=== PATIENT | female | born 1935 | race Caucasian/White ===

== ENCOUNTER 2020-05-24 17:52 | Observation (INO) | payer MEDICARE, OTHER ==
--- NOTE | 2020-05-24 18:52 | EDM.PDOC ---
ED HPI GENERAL MEDICAL PROBLEM - General Chief Complaint: Neuro Symptoms/Deficits Stated Complaint: STROKE SYMPTOMS Time Seen by Provider: 05/24/20 18:22 Source of Information: Reports: Patient History Limitations: Reports: Altered Mental Status (Patient slightly confused - not a great historian) - History of Present Illness INITIAL COMMENTS - FREE TEXT/NARRATIVE: Mrs. Dong is a very pleasant 84-year-old woman who now presents to the ED after experiencing difficulty speaking around 17:45 this evening, lasting about 30 minutes. She states that she was able to speak words that were likely [place], but they were disordered and did not make any sense. She was unable to communicate with her daughter. Additionally, the patient states that she had difficulty understanding what her daughter was telling her. She states that it felt like she was having difficulty thinking correctly, which has persisted, even though her language has returned. At no time did she have a headache, tingling, numbness, or weakness. No prior similar symptoms. The patient states that she did not take any [id number] or home remedies after the onset of her symptoms, prior to coming to the ED. Here in the ED, the patient's initial BP is found to be modestly elevated at 173/86, otherwise, she is hemodynamically stable, afebrile, saturating 95% on room air. Prior to this evening, the patient denies having a recent fever, chills, sore throat, ear pain, nasal or sinus congestion, cough, dyspnea, chest pain, palpitations, nausea, vomiting, constipation, diarrhea, abdominal pain, urinary symptoms, recent weight gain or weight loss, recent bloody bowel movements or black bowel movements, recent joint aches, headaches, or rashes. The patient's PCP is Dr. Mini Mendoza. Her Oncologist is Dr. Edward Garcia. - Related Data Allergies Allergy/AdvReac Type Severity Reaction Status Date / Time No Known Allergies Allergy Verified 05/24/20 23:37 Home Meds: Home Meds Cholecalciferol (Vitamin D3) [Vitamin D3] 1,000 unit PO DAILY 06/21/14 [History] Rosuvastatin [Crestor] 10 mg PO DAILY 06/21/14 [History] Bisoprolol/Hydrochlorothiazide [Bisoprolol-Hctz 10-6.25 mg Tab] 1 tab PO DAILY 05/24/20 [History] Celecoxib 200 mg PO DAILY 05/24/20 [History] Gentamicin [Gentak 0.3% Ophth Oint] 1 drop OP TID 05/24/20 [History] Ibrutinib [Imbruvica] 420 mg PO DAILY 05/24/20 [History] Magnesium 250 mg PO DAILY 05/24/20 [History] Omeprazole 20 mg PO DAILY 05/24/20 [History] Ondansetron [Zofran] 8 mg PO TID PRN 05/24/20 [History] Sennosides 8.6 mg PO DAILY 05/24/20 [History] amLODIPine [Norvasc] 5 mg PO DAILY 05/24/20 [History] guaiFENesin [Mucinex] 600 mg PO BID PRN 05/24/20 [History] Past Medical History HEENT History: Reports: Hard of Hearing (bilateral hearing aids) Cardiovascular History: Reports: High Cholesterol, Hypertension Musculoskeletal History: Reports: Fracture (left ankle) Oncologic (Cancer) History: 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 (right, s/p mastectomy), 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) - Past Surgical History HEENT Surgical History: Reports: Cataract Surgery (bilateral) GI Surgical History: Reports: Appendectomy Musculoskeletal Surgical History: Reports: ORIF (left ankle) Oncologic Surgical History: Reports: Mastectomy (right) Social & Family History - Tobacco Use Tobacco Use Status *Q: Never Tobacco User - Alcohol Use Alcohol Use History: Yes Alcohol Use Frequency: Rarely - Recreational Drug Use Recreational Drug Use: No - Living Situation & Occupation Living situation: Reports: , with Family (Daughter) Occupation: Retired ED ROS GENERAL - Review of Systems Review Of Systems: Comprehensive ROS is negative, except as noted in HPI. ED EXAM, NEURO - Physical Exam Exam: See Below Exam Limited By: No Limitations General Appearance: Alert, WD/WN, No Apparent Distress Eye Exam: Bilateral Eye: EOMI, Normal Inspection (s/p cataract surgery) Ears: Normal External Exam, Normal Canal, Normal TMs, Hearing Loss, Other (Bilateral hearing aids removed for exam) Nose: Normal Inspection, Normal Mucosa, No Blood Throat/Mouth: Normal Inspection, Normal Lips, Normal Teeth, Normal Gums, Normal Oropharynx, Normal Voice, No Airway Compromise Head Exam: Atraumatic, Normocephalic Neck: Normal Inspection, Supple, Non-Tender, Full Range of Motion. No: Lymphadenopathy (L), Lymphadenopathy (R) Respiratory/Chest: No Respiratory Distress, Lungs Clear, Normal Breath Sounds, No Accessory Muscle Use Cardiovascular: Normal Peripheral Pulses, Regular Rate, Rhythm, No Gallop, No JVD, No Murmur, No Rub GI/Abdominal: Normal Bowel Sounds, Soft, Non-Tender, No Organomegaly, No Distention, No Abnormal Bruit, No Mass Neurological: Alert, Normal Dorsiflexion, CN II-XII Intact, Normal Plantar Flexion, No Motor/Sensory Deficits, Oriented x 3, Other (Somewhat confused about past medical and surgical history) Back Exam: Normal Inspection, Full Range of Motion, NT Extremities: Normal Inspection, Normal Range of Motion, Normal Capillary Refill Psychiatric: Normal Affect Skin Exam: Warm, Dry, Intact, Normal Color, No Rash #1 Interpretation EKG Date: 05/24/20 Time: 18:20 Rhythm: NSR Rate (Beats/Min): 69 [place]: 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) P-Wave: Present (1st degree AVB) QRS: Other (Late transition) ST-T: Normal QT: Normal Comparison: No Change (06/21/14) Course - Vital Signs Last Recorded V/S: Last Vital Signs Temp 36.7 C 05/24/20 23:03 Pulse 58 L 05/24/20 23:03 Resp 16 05/24/20 23:03 BP 122/84 05/24/20 23:00 Pulse Ox 94 L 05/24/20 23:03 - Orders/Labs/Meds Orders: Active Orders 24 hr Category Date Time Status EKG 12 Lead [EKG Documentation Completion] [RC] ROUTINE Care 05/24/20 18:18 Active Chest 2V [CR] Stat Exams 05/24/20 18:43 Taken Head wo Cont [CT] Stat Exams 05/24/20 18:42 Taken CULTURE URINE [RM] Stat Lab 05/24/20 19:45 Received Medication Orders Nitrofurantoin Macrocrystals (Macrobid) 100 mg PO BID [facility] Labs: Laboratory Tests 05/24/20 05/24/20 05/24/20 Range/Units 18:10 18:10 18:10 WBC 6.03 (3.98-10.04) K/mm3 RBC 4.58 (3.98-5.22) M/mm3 Hgb 13.8 D (11.2-15.7) gm/dl Hct 41.8 (34.1-44.9) % MCV 91.3 (79.4-94.8) fl MCH 30.1 (25.6-32.2) pg MCHC 33.0 (32.2-35.5) g/dl RDW Std Deviation 47.2 H (36.4-46.3) fL Plt Count 253 (182-369) K/mm3 MPV 9.8 (9.4-12.3) fl Neutrophils % (Manual) 46 (40-60) % Band Neutrophils % 2 (0-10) % Lymphocytes % (Manual) 44 H (20-40) % Atypical Lymphs % 0 % Monocytes % (Manual) 5 (2-10) % Eosinophils % (Manual) 2 (0.7-5.8) % Basophils % (Manual) 1 (0.1-1.2) Platelet Estimate Adequate RBC Morph Comment Normal D-Dimer, Quantitative 0.31 (0.19-0.50) mg/L Sodium 135 L (136-145) mEq/L Potassium 3.7 (3.5-5.1) mEq/L Chloride 98 (98-107) mEq/L Carbon Dioxide 30 (21-32) mEq/L Anion Gap 10.7 (5-15) BUN 16 (7-18) mg/dL Creatinine 1.0 (0.55-1.02) mg/dL Est Cr Clr Drug Dosing 33.41 mL/min Estimated GFR (MDRD) 53 (>60) mL/min BUN/Creatinine Ratio 16.0 (14-18) Glucose 115 (83-115) mg/dL POC Glucose (83-110) mg/dL Calcium 9.6 (8.5-10.1) mg/dL Magnesium 1.7 L (1.8-2.4) mg/dl Total Bilirubin 0.5 (0.2-1.0) mg/dL AST 18 (15-37) U/L ALT 21 (14-59) U/L Alkaline Phosphatase 79 (46-116) U/L Troponin I 0.028 (0.00-0.056) ng/mL Total Protein 6.6 (6.4-8.2) g/dl Albumin 3.6 (3.4-5.0) g/dl Globulin 3.0 gm/dL Albumin/Globulin Ratio 1.2 (1-2) Urine Color (Yellow) Urine Appearance (Clear) Urine pH (5.0-8.0) Ur Specific [place] (1.005-1.030) Urine Protein (Negative) Urine Glucose (UA) (Negative) Urine Ketones (Negative) Urine Occult Blood (Negative) Urine Nitrite (Negative) Urine Bilirubin (Negative) Urine Urobilinogen (0.2-1.0) Ur Leukocyte Esterase (Negative) Urine RBC (0-5) /hpf Urine WBC (0-5) /hpf Urine WBC Clumps (NOT SEEN) /hpf Ur Squamous Epith Cells (0-5) /hpf Urine Bacteria (FEW) /hpf Urine Mucus (FEW) /hpf SARS-CoV-2 RNA (JOSE) (NEGATIVE) 05/24/20 05/24/20 05/24/20 Range/Units 18:16 19:45 20:33 WBC (3.98-10.04) K/mm3 RBC (3.98-5.22) M/mm3 Hgb (11.2-15.7) gm/dl Hct (34.1-44.9) % MCV (79.4-94.8) fl MCH (25.6-32.2) pg MCHC (32.2-35.5) g/dl RDW Std Deviation (36.4-46.3) fL Plt Count (182-369) K/mm3 MPV (9.4-12.3) fl Neutrophils % (Manual) (40-60) % Band Neutrophils % (0-10) % Lymphocytes % (Manual) (20-40) % Atypical Lymphs % % Monocytes % (Manual) (2-10) % Eosinophils % (Manual) (0.7-5.8) % Basophils % (Manual) (0.1-1.2) Platelet Estimate RBC Morph Comment D-Dimer, Quantitative (0.19-0.50) mg/L Sodium (136-145) mEq/L Potassium (3.5-5.1) mEq/L Chloride (98-107) mEq/L Carbon Dioxide (21-32) mEq/L Anion Gap (5-15) BUN (7-18) mg/dL Creatinine (0.55-1.02) mg/dL Est Cr Clr Drug Dosing mL/min Estimated GFR (MDRD) (>60) mL/min BUN/Creatinine Ratio (14-18) Glucose (83-115) mg/dL POC Glucose 122 H (83-110) mg/dL Calcium (8.5-10.1) mg/dL Magnesium (1.8-2.4) mg/dl Total Bilirubin (0.2-1.0) mg/dL AST (15-37) U/L ALT (14-59) U/L Alkaline Phosphatase (46-116) U/L Troponin I (0.00-0.056) ng/mL Total Protein (6.4-8.2) g/dl Albumin (3.4-5.0) g/dl Globulin gm/dL Albumin/Globulin Ratio (1-2) Urine Color Yellow (Yellow) Urine Appearance Clear (Clear) Urine pH 7.0 (5.0-8.0) Ur Specific [place] 1.020 (1.005-1.030) Urine Protein Negative (Negative) Urine Glucose (UA) Negative (Negative) Urine Ketones Negative (Negative) Urine Occult Blood 2+ H (Negative) Urine Nitrite Negative (Negative) Urine Bilirubin Negative (Negative) Urine Urobilinogen 0.2 (0.2-1.0) Ur Leukocyte Esterase 2+ H (Negative) Urine RBC 5-10 H (0-5) /hpf Urine WBC 50-75 H (0-5) /hpf Urine WBC Clumps Occasional (NOT SEEN) /hpf Ur Squamous Epith Cells 0-5 (0-5) /hpf Urine Bacteria Few (FEW) /hpf Urine Mucus Not seen (FEW) /hpf SARS-CoV-2 RNA (JOSE) Negative (NEGATIVE) Meds: Medications Generic Name Dose Route Start Last Admin Trade Name Freq PRN Reason Stop Dose Admin Nitrofurantoin Macrocrystals 100 mg 05/25/20 09:00 Macrobid PO BID GLENN Discontinued Medications Generic Name Dose Route Start Last Admin Trade Name Freq PRN Reason Stop Dose Admin Nitrofurantoin Macrocrystals 100 mg 05/24/20 20:14 05/24/20 20:34 Macrobid PO 05/24/20 20:15 100 mg ONETIME STA Administration - Re-Assessments/Exams Free Text/Narrative Re-Assessment/Exam: 05/24/20 18:44 As above, the patient developed both receptive and expressive aphasia around 17:45 this evening, lasting about 30 minutes, and resolving completely before arrival to the ED. She states, however, that she also felt like her brain was not working quite well, and that symptom persists. She has some difficulty in recalling events, such as what sort of treatment she received for her breast cancer and leukemia, or whether or not she has had a variety of surgeries - forgetting that she has had bilateral cataract surgery, despite directly being asked that. Confusion alone, without focal neurologic deficits, is not a sign of a stroke, and the patient has no focal neurologic deficits at this time. I suspect that she suffered a TIA, but other etiologies are possible. She may be developing dementia or have some other neurologic condition. I have ordered a work-up that includes blood work, a urinalysis, a chest x-ray, and a CT of the head without contrast. Because the list of symptoms due to COVID-19 is ever expanding, now causing virtually any symptom, it is also possible that she has COVID-19, therefore I have ordered a swab for the SARS-CoV-2 virus. 05/24/20 19:33 2-view chest radiograph is read by [facility] as "No acute findings." 05/24/20 19:41 CT of the head no contrast is read by [facility] as: 1. Patchy deep white matter low-attenuation compatible with this age group suggesting chronic subcortical ischemia. 2. No acute abnormality. 05/24/20 20:15 The patient's CBC is unremarkable. Her CMP is remarkable for a sodium at the lower limits of normal of 135, with the remainder of her CMP being unremarkable. Her magnesium level is slightly depressed at 1.7. Her troponin is within normal limits at 0.028. Her D-dimer is within normal limits at 0.31. Her urinalysis is remarkable for 2+ occult blood with 5-10 RBCs, 2+ leukocyte esterase with 50-75 WBCs, nitrate negative with few bacteria, and 0-5 squamous epithelial cells. Based on the above, I have ordered a urine culture, and will start the patient on oral nitrofurantoin. 05/24/20 20:28 Test results discussed with the patient. As above, I suspect that she suffered a TIA, and she also appears to have a UTI. I would like to place her into observation so that she can get an MRI of the head within 24 hours, along with a carotid Doppler and an echocardiogram, however, this facility is currently on diversion. The patient would prefer to stay here in [place], however, she is willing to go to [place] if a bed is available. 05/24/20 20:38 Case discussed with Nancy at [facility] at 20:29. Case then discussed with Dr. Franklin, Hospitalist at [facility], at 20:35. Pending a negative swab for the SARS-CoV-2 virus, she accepted the patient for transfer to their facility. If the patient is positive for the SARS-CoV-2 virus, they will not be able to accept the patient at this time. 05/24/20 22:31 The patient's a swab for the SARS-CoV-[address] Clayton came by the ED and can place the patient into observation here. He will arrange for the MRI, carotid Doppler, and echocardiogram. I will write bridge orders for diet and activity. Departure - Departure Time of Disposition: 22:32 Disposition: Refer to Observation Condition: Good Clinical Impression: TIA (transient ischemic attack), UTI (urinary tract infection) - Discharge Information *PRESCRIPTION DRUG MONITORING PROGRAM REVIEWED*: Not Applicable *COPY OF PRESCRIPTION DRUG MONITORING REPORT IN PATIENT LONI: Not Applicable Sepsis Event Note (ED) - Evaluation Sepsis Screening Result: No Definite Risk - Focused Exam Vital Signs: Vital Signs Temp Pulse Resp BP Pulse Ox 05/24/20 18:08 36.1 C 71 16 173/86 H 95 - My Orders Last 24 Hours: My Active Orders 05/24/20 18:18 EKG 12 Lead [EKG Documentation Completion] [RC] ROUTINE 05/24/20 18:42 Head wo Cont [CT] Stat 05/24/20 18:43 Chest 2V [CR] Stat 05/24/20 19:45 CULTURE URINE [RM] Stat - Assessment/Plan Last 24 Hours: My Active Orders 05/24/20 18:18 EKG 12 Lead [EKG Documentation Completion] [RC] ROUTINE 05/24/20 18:42 Head wo Cont [CT] Stat 05/24/20 18:43 Chest 2V [CR] Stat 05/24/20 19:45 CULTURE URINE [RM] Stat
[2020-05-24] MEDS ORDERED: Nitrofurantoin Monohydrate/Macrocrystalline 100 MG Cap PO STA (20:14)
[2020-05-25] MEDS ORDERED: Ondansetron 4 MG Tab.DIS PO PRN (08:01)
[2020-05-25] MEDS ORDERED: CELECOXIB 200 MG PO SCH (09:00)
[2020-05-25] MEDS ORDERED: Enoxaparin 30 MG/0.3 ML Syringe SUBCUT ONE (10:15)
[2020-05-25] MEDS: Cholecalciferol (Vitamin D3) 25 MCG Tab PO SCH (10:36)
[2020-05-25] MEDS: Aspirin 325 MG Tab.EC PO SCH (10:37)
[2020-05-25] MEDS: Sennosides 8.6 MG Tab PO SCH (10:39)
[2020-05-25] MEDS: Nitrofurantoin Monohydrate/Macrocrystalline 100 MG Cap PO SCH ×2 (10:39→20:20)
[2020-05-25] MEDS ORDERED: Magnesium Sulfate/Water 2 GM/50 ML BAG IV ONE (12:00)
--- NOTE | 2020-05-25 12:47 | PCM.HP.2 ---
H&P History of Present Illness - General Date of Service: 05/25/20 Admit Problem/Dx: Admission Diagnosis/Problem Admission Diagnosis/Problem TIA, Transient ischemic attack Source of Information: Provider History Limitations: Reports: Other (Patient is oriented to person and place only.) - History of Present Illness Initial Comments - Free Text/Narative: Mrs. Dong is a very pleasant 84-year-old woman who now presents to the ED after experiencing difficulty speaking around 17:45 this evening, lasting about 30 minutes. She states that she was able to speak words that were likely German, but they were disordered and did not make any sense. She was unable to communicate with her daughter. Additionally, the patient states that she had difficulty understanding what her daughter was telling her. She states that it felt like she was having difficulty thinking correctly, which has persisted, even though her language has returned. At no time did she have a headache, tingling, numbness, or weakness. No prior similar symptoms. The patient states that she did not take any [id number] or home remedies after the onset of her symptoms, prior to coming to the ED. Here in the ED, the patient's initial BP is found to be modestly elevated at 173/86, otherwise, she is hemodynamically stable, afebrile, saturating 95% on room air. Prior to this evening, the patient denies having a recent fever, chills, sore throat, ear pain, nasal or sinus congestion, cough, dyspnea, chest pain, palpitations, nausea, vomiting, constipation, diarrhea, abdominal pain, urinary symptoms, recent weight gain or weight loss, recent bloody bowel movements or black bowel movements, recent joint aches, headaches, or rashes. The patient's PCP is Dr. Mini Mendoza. Her Oncologist is Dr. Edward Garcia. - Related Data Allergies/Adverse Reactions: Allergies Allergy/AdvReac Type Severity Reaction Status Date / Time No Known Allergies Allergy Verified 05/24/20 23:37 Home Medications: Home Meds Cholecalciferol (Vitamin D3) [Vitamin D3] 1,000 unit PO DAILY 06/21/14 [History] Rosuvastatin [Crestor] 10 mg PO DAILY 06/21/14 [History] Bisoprolol/Hydrochlorothiazide [Bisoprolol-Hctz 10-6.25 mg Tab] 1 tab PO DAILY 05/24/20 [History] Celecoxib 200 mg PO DAILY 05/24/20 [History] Gentamicin [Gentak 0.3% Ophth Oint] 1 drop OP TID 05/24/20 [History] Ibrutinib [Imbruvica] 420 mg PO DAILY 05/24/20 [History] Magnesium 250 mg PO DAILY 05/24/20 [History] Omeprazole 20 mg PO DAILY 05/24/20 [History] Ondansetron [Zofran] 8 mg PO TID PRN 05/24/20 [History] Sennosides 8.6 mg PO DAILY 05/24/20 [History] amLODIPine [Norvasc] 5 mg PO DAILY 05/24/20 [History] guaiFENesin [Mucinex] 600 mg PO BID PRN 05/24/20 [History] Aspirin 81 mg PO DAILY 05/25/20 [History] Calcium Carbonate [Calcium] 1,500 mg PO DAILY 05/25/20 [History] Furosemide [Lasix] 20 mg PO DAILY PRN 05/25/20 [History] Multivitamin 1 tab PO DAILY 05/25/20 [History] Past Medical History HEENT History: Reports: Hard of Hearing (bilateral hearing aids) Other HEENT History: has hearing aides for bilateral ears and glasses Cardiovascular History: Reports: High Cholesterol, Hypertension 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: Musculoskeletal History: Reports: Fracture (left ankle) Endocrine/Metabolic History: Reports: Obesity/BMI 30+ Oncologic (Cancer) History: 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 (right, s/p mastectomy), 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) - Infectious Disease History Infectious Disease History: Reports: Chicken Pox, Influenza, Measles, Mumps - Past Surgical History HEENT Surgical History: Reports: Cataract Surgery (bilateral) GI Surgical History: Reports: Appendectomy Musculoskeletal Surgical History: Reports: ORIF (left ankle) Oncologic Surgical History: Reports: Mastectomy (right) Social & Family History - Family History Family Medical History: No Pertinent Family History - Tobacco Use Tobacco Use Status *Q: Never Tobacco User Second Hand Smoke Exposure: No - Caffeine Use Caffeine Use: Reports: Coffee, Tea - Recreational Drug Use Recreational Drug Use: No - Living Situation & Occupation Living situation: Reports: , with Family (Daughter) Occupation: Retired H&P Review of Systems - Review of Systems: Review Of Systems: See Below General: Reports: No Symptoms HEENT: Reports: No Symptoms. Denies: Headaches, Vertigo, Visual Changes Pulmonary: Reports: No Symptoms Cardiovascular: Reports: No Symptoms Gastrointestinal: Reports: No Symptoms Genitourinary: Reports: No Symptoms Musculoskeletal: Reports: No Symptoms Skin: Reports: No Symptoms Psychiatric: Reports: No Symptoms Neurological: Reports: Confusion (Patient is oriented to person and place only.). Denies: Headache, Numbness, Weakness Exam - Exam Exam: See Below - Vital Signs Vital Signs: Last Vital Signs Temp 98.8 F 05/25/20 12:13 Pulse 60 05/25/20 12:13 Resp 14 05/25/20 12:13 BP 159/99 H 05/25/20 12:13 Pulse Ox 89 L 05/25/20 12:13 Weight: 168 lb 8 oz - Exam Quality Assessment: DVT Prophylaxis (Lovenox). No: Supplemental Oxygen General: Alert, Cooperative. No: Oriented (To person and place only) HEENT: Conjunctiva Clear, EACs Clear, EOMI, Hearing Intact, Mucosa Moist & [place], Pupils Equal, Pupils Reactive Neck: Supple, Trachea Midline. No: Lymphadenopathy Lungs: Clear to Auscultation, Normal Respiratory Effort Cardiovascular: Regular Rate, Regular Rhythm, Normal S1, Normal S2 GI/Abdominal Exam: Normal Bowel Sounds, Soft, Non-Tender, No Distention (Female) Exam: Deferred Rectal (Female) Exam: Deferred Back Exam: Normal Inspection, Full Range of Motion Extremities: Normal Inspection, Normal Range of Motion, Non-Tender, No Pedal Edema, Normal Capillary Refill Peripheral Pulses: 2+: Radial (L), Radial (R), Dorsalis Pedis (L), Dorsalis Pedis (R) Skin: Warm, Dry, Intact Neurological: Cranial Nerves Intact, Strength Equal Bilateral, Normal Speech, Normal Tone, Sensation Intact Neuro Extensive - Mental Status: Alert, Normal Mood/Affect, Normal Cognition, Disorientation to Time. No: Oriented x3 (Oriented to person and place only) - Patient Data Lab Results Last 24 hrs: Laboratory Results - last 24 hr 05/24/20 05/24/20 05/24/20 Range/Units 18:10 18:10 18:10 WBC 6.03 (3.98-10.04) K/mm3 RBC 4.58 (3.98-5.22) M/mm3 Hgb 13.8 D (11.2-15.7) gm/dl Hct 41.8 (34.1-44.9) % MCV 91.3 (79.4-94.8) fl MCH 30.1 (25.6-32.2) pg MCHC 33.0 (32.2-35.5) g/dl RDW Std Deviation 47.2 H (36.4-46.3) fL Plt Count 253 (182-369) K/mm3 MPV 9.8 (9.4-12.3) fl Neut % (Auto) (34.0-71.1) % Lymph % (Auto) (19.3-51.7) % [place] % (Auto) (4.7-12.5) % Eos % (Auto) (0.7-5.8) Baso % (Auto) (0.1-1.2) % Neut # (Auto) (1.56-6.13) K/mm3 Lymph # (Auto) (1.18-3.74) K/mm3 [place] # (Auto) (0.24-0.36) K/mm3 Eos # (Auto) (0.04-0.36) K/mm3 Baso # (Auto) (0.01-0.08) K/mm3 Neutrophils % (Manual) 46 (40-60) % Band Neutrophils % 2 (0-10) % Lymphocytes % (Manual) 44 H (20-40) % Atypical Lymphs % 0 % Monocytes % (Manual) 5 (2-10) % Eosinophils % (Manual) 2 (0.7-5.8) % Basophils % (Manual) 1 (0.1-1.2) Manual Slide Review Platelet Estimate Adequate RBC Morph Comment Normal D-Dimer, Quantitative 0.31 (0.19-0.50) mg/L Sodium 135 L (136-145) mEq/L Potassium 3.7 (3.5-5.1) mEq/L Chloride 98 (98-107) mEq/L Carbon Dioxide 30 (21-32) mEq/L Anion Gap 10.7 (5-15) BUN 16 (7-18) mg/dL Creatinine 1.0 (0.55-1.02) mg/dL Est Cr Clr Drug Dosing 33.41 mL/min Estimated GFR (MDRD) 53 (>60) mL/min BUN/Creatinine Ratio 16.0 (14-18) Glucose 115 (83-115) mg/dL POC Glucose (83-110) mg/dL Calcium 9.6 (8.5-10.1) mg/dL Magnesium 1.7 L (1.8-2.4) mg/dl Total Bilirubin 0.5 (0.2-1.0) mg/dL AST 18 (15-37) U/L ALT 21 (14-59) U/L Alkaline Phosphatase 79 (46-116) U/L Troponin I 0.028 (0.00-0.056) ng/mL Total Protein 6.6 (6.4-8.2) g/dl Albumin 3.6 (3.4-5.0) g/dl Globulin 3.0 gm/dL Albumin/Globulin Ratio 1.2 (1-2) Urine Color (Yellow) Urine Appearance (Clear) Urine pH (5.0-8.0) Ur Specific [place] (1.005-1.030) Urine Protein (Negative) Urine Glucose (UA) (Negative) Urine Ketones (Negative) Urine Occult Blood (Negative) Urine Nitrite (Negative) Urine Bilirubin (Negative) Urine Urobilinogen (0.2-1.0) Ur Leukocyte Esterase (Negative) Urine RBC (0-5) /hpf Urine WBC (0-5) /hpf Urine WBC Clumps (NOT SEEN) /hpf Ur Squamous Epith Cells (0-5) /hpf Urine Bacteria (FEW) /hpf Urine Mucus (FEW) /hpf SARS-CoV-2 RNA (JOSE) (NEGATIVE) 05/24/20 05/24/20 05/24/20 Range/Units 18:16 19:45 20:33 WBC (3.98-10.04) K/mm3 RBC (3.98-5.22) M/mm3 Hgb (11.2-15.7) gm/dl Hct (34.1-44.9) % MCV (79.4-94.8) fl MCH (25.6-32.2) pg MCHC (32.2-35.5) g/dl RDW Std Deviation (36.4-46.3) fL Plt Count (182-369) K/mm3 MPV (9.4-12.3) fl Neut % (Auto) (34.0-71.1) % Lymph % (Auto) (19.3-51.7) % [place] % (Auto) (4.7-12.5) % Eos % (Auto) (0.7-5.8) Baso % (Auto) (0.1-1.2) % Neut # (Auto) (1.56-6.13) K/mm3 Lymph # (Auto) (1.18-3.74) K/mm3 [place] # (Auto) (0.24-0.36) K/mm3 Eos # (Auto) (0.04-0.36) K/mm3 Baso # (Auto) (0.01-0.08) K/mm3 Neutrophils % (Manual) (40-60) % Band Neutrophils % (0-10) % Lymphocytes % (Manual) (20-40) % Atypical Lymphs % % Monocytes % (Manual) (2-10) % Eosinophils % (Manual) (0.7-5.8) % Basophils % (Manual) (0.1-1.2) Manual Slide Review Platelet Estimate RBC Morph Comment D-Dimer, Quantitative (0.19-0.50) mg/L Sodium (136-145) mEq/L Potassium (3.5-5.1) mEq/L Chloride (98-107) mEq/L Carbon Dioxide (21-32) mEq/L Anion Gap (5-15) BUN (7-18) mg/dL Creatinine (0.55-1.02) mg/dL Est Cr Clr Drug Dosing mL/min Estimated GFR (MDRD) (>60) mL/min BUN/Creatinine Ratio (14-18) Glucose (83-115) mg/dL POC Glucose 122 H (83-110) mg/dL Calcium (8.5-10.1) mg/dL Magnesium (1.8-2.4) mg/dl Total Bilirubin (0.2-1.0) mg/dL AST (15-37) U/L ALT (14-59) U/L Alkaline Phosphatase (46-116) U/L Troponin I (0.00-0.056) ng/mL Total Protein (6.4-8.2) g/dl Albumin (3.4-5.0) g/dl Globulin gm/dL Albumin/Globulin Ratio (1-2) Urine Color Yellow (Yellow) Urine Appearance Clear (Clear) Urine pH 7.0 (5.0-8.0) Ur Specific [place] 1.020 (1.005-1.030) Urine Protein Negative (Negative) Urine Glucose (UA) Negative (Negative) Urine Ketones Negative (Negative) Urine Occult Blood 2+ H (Negative) Urine Nitrite Negative (Negative) Urine Bilirubin Negative (Negative) Urine Urobilinogen 0.2 (0.2-1.0) Ur Leukocyte Esterase 2+ H (Negative) Urine RBC 5-10 H (0-5) /hpf Urine WBC 50-75 H (0-5) /hpf Urine WBC Clumps Occasional (NOT SEEN) /hpf Ur Squamous Epith Cells 0-5 (0-5) /hpf Urine Bacteria Few (FEW) /hpf Urine Mucus Not seen (FEW) /hpf SARS-CoV-2 RNA (JOSE) Negative (NEGATIVE) 05/25/20 05/25/20 Range/Units 08:25 08:25 WBC 5.13 (3.98-10.04) K/mm3 RBC 4.80 (3.98-5.22) M/mm3 Hgb 14.2 (11.2-15.7) gm/dl Hct 43.7 (34.1-44.9) % MCV 91.0 (79.4-94.8) fl MCH 29.6 (25.6-32.2) pg MCHC 32.5 (32.2-35.5) g/dl RDW Std Deviation 47.1 H (36.4-46.3) fL Plt Count 230 (182-369) K/mm3 MPV 9.4 (9.4-12.3) fl Neut % (Auto) 40.3 (34.0-71.1) % Lymph % (Auto) 35.1 (19.3-51.7) % [place] % (Auto) 20.1 H (4.7-12.5) % Eos % (Auto) 2.9 (0.7-5.8) Baso % (Auto) 1.2 (0.1-1.2) % Neut # (Auto) 2.07 (1.56-6.13) K/mm3 Lymph # (Auto) 1.80 (1.18-3.74) K/mm3 [place] # (Auto) 1.03 H (0.24-0.36) K/mm3 Eos # (Auto) 0.15 (0.04-0.36) K/mm3 Baso # (Auto) 0.06 (0.01-0.08) K/mm3 Neutrophils % (Manual) (40-60) % Band Neutrophils % (0-10) % Lymphocytes % (Manual) (20-40) % Atypical Lymphs % % Monocytes % (Manual) (2-10) % Eosinophils % (Manual) (0.7-5.8) % Basophils % (Manual) (0.1-1.2) Manual Slide Review Abnormal smear Platelet Estimate RBC Morph Comment D-Dimer, Quantitative (0.19-0.50) mg/L Sodium 136 (136-145) mEq/L Potassium 4.1 (3.5-5.1) mEq/L Chloride 100 (98-107) mEq/L Carbon Dioxide 28 (21-32) mEq/L Anion Gap 12.1 (5-15) BUN 12 (7-18) mg/dL Creatinine 0.8 (0.55-1.02) mg/dL Est Cr Clr Drug Dosing 41.76 mL/min Estimated GFR (MDRD) > 60 (>60) mL/min BUN/Creatinine Ratio 15.0 (14-18) Glucose 83 (83-115) mg/dL POC Glucose (83-110) mg/dL Calcium 9.7 (8.5-10.1) mg/dL Magnesium 1.9 (1.8-2.4) mg/dl Total Bilirubin 0.9 (0.2-1.0) mg/dL AST 20 (15-37) U/L ALT 21 (14-59) U/L Alkaline Phosphatase 71 (46-116) U/L Troponin I (0.00-0.056) ng/mL Total Protein 6.8 (6.4-8.2) g/dl Albumin 3.7 (3.4-5.0) g/dl Globulin 3.1 gm/dL Albumin/Globulin Ratio 1.2 (1-2) Urine Color (Yellow) Urine Appearance (Clear) Urine pH (5.0-8.0) Ur Specific [place] (1.005-1.030) Urine Protein (Negative) Urine Glucose (UA) (Negative) Urine Ketones (Negative) Urine Occult Blood (Negative) Urine Nitrite (Negative) Urine Bilirubin (Negative) Urine Urobilinogen (0.2-1.0) Ur Leukocyte Esterase (Negative) Urine RBC (0-5) /hpf Urine WBC (0-5) /hpf Urine WBC Clumps (NOT SEEN) /hpf Ur Squamous Epith Cells (0-5) /hpf Urine Bacteria (FEW) /hpf Urine Mucus (FEW) /hpf SARS-CoV-2 RNA (JOSE) (NEGATIVE) Result Diagrams: 05/25/20 08:25 05/25/20 08:25 Zhen Results Last 24 hrs: Microbiology 05/24/20 19:45 Urine Culture - Preliminary Urine, Quick Cath (In-Out) Gram Positive Cocci Sepsis Event Note - Evaluation Sepsis Screening Result: No Definite Risk - Focused Exam Vital Signs: Vital Signs Temp Pulse Resp BP Pulse Ox 05/25/20 12:13 98.8 F 60 14 159/99 H 89 L 05/25/20 11:44 97.9 F 54 L 15 162/103 H 90 L 05/25/20 07:47 97.3 F 54 L 12 184/123 H 95 05/25/20 05:12 98.1 F 57 L 16 171/96 H 92 L *Q Meaningful Use (ADM) - VTE Risk Assess *Q Other Thrombophilia Type: TIA today - Problem List (1) TIA (transient ischemic attack) SNOMED Code(s): 982596246 ICD Code: G45.9 - TRANSIENT CEREBRAL ISCHEMIC ATTACK, UNSPECIFIED Status: Acute Priority: High Current Visit: Yes (2) UTI (urinary tract infection) SNOMED Code(s): 83298863 ICD Code: N39.0 - URINARY TRACT INFECTION, SITE NOT SPECIFIED Status: Acute Priority: High Current Visit: Yes Qualifiers: Urinary tract infection type: site unspecified Hematuria presence: with hematuria Qualified Code(s): N39.0 - Urinary tract infection, site not specified; R31.9 - Hematuria, unspecified Problem List Initiated/Reviewed/Updated: Yes Orders Last 24hrs: Active Orders 24 hr Category Date Time Status Patient Status [ADT] Routine ADT 05/24/20 22:42 Active Activity as Tolerated [RC] .Routine Care 05/24/20 23:45 Active EKG 12 Lead [EKG Documentation Completion] [RC] ROUTINE Care 05/24/20 18:18 Active Telemetry Monitoring [Cardiac Monitoring] [RC] . Care 05/25/20 07:51 Active DIRECTED Consult to Speech Language Pathology [[employer] Evaluation Cons 05/25/20 10:13 Active and Treatment] [CONS] Routine OT Evaluation and Treatment [CONS] Routine Cons 05/25/20 11:11 Active PT Evaluation and Treatment [CONS] Routine Cons 05/25/20 11:11 Active Regular Diet [DIET] Diet 05/25/20 Breakfast Active Brain wo Cont [MR] Routine Exams 05/25/20 08:16 Ordered Chest 2V [CR] Stat Exams 05/24/20 18:43 Taken Head wo Cont [CT] Stat Exams 05/24/20 18:42 Taken CULTURE URINE [RM] Stat Lab 05/24/20 19:45 Results Aspirin [Ecotrin] Med 05/25/20 10:30 Active 325 mg PO DAILY Bisoprolol/Hydrochlorothiazide Med 05/25/20 09:00 Active 1 tab PO DAILY Celecoxib [Celecoxib] Med 05/26/20 09:00 Pending 0 mg PO DAILY Cholecalciferol (Vitamin D3) [Vitamin D3] Med 05/25/20 10:30 Active 25 mcg PO DAILY Enoxaparin [Lovenox] Med 05/25/20 21:00 Active 30 mg SUBCUT Q12H Ibrutinib [Imbruvica] Med 05/25/20 18:00 Active 0 mg PO QPM Magnesium Oxide Med 05/26/20 09:00 Active 400 mg PO DAILY Magnesium Sulfate/Water [Magnesium Sulfate in Water Med 05/25/20 12:00 Active Premix] 2 gm in 50 ml IV ONETIME Nitrofurantoin [place]/Macrocryst [Macrobid] Med 05/25/20 09:00 Active 100 mg PO BID Omeprazole Med 05/26/20 09:00 Active 20 mg PO DAILY Ondansetron Med 05/25/20 08:01 Pending 8 mg PO TID PRN Rosuvastatin [Crestor] Med 05/26/20 09:00 Active 10 mg PO DAILY Sennosides [Senna] Med 05/25/20 10:30 Active 8.6 mg PO DAILY amLODIPine [Norvasc] Med 05/25/20 09:00 Active 5 mg PO DAILY Code Status [Resuscitation Status] Routine Resus Stat 05/24/20 23:44 Ordered Medication Orders Amlodipine Besylate (Norvasc) 5 mg PO DAILY [facility] Aspirin (Ecotrin) 325 mg PO DAILY [facility] Last Admin: 05/25/20 10:37 Dose: 325 mg Documented by: SONU Cholecalciferol (Vitamin D3) 25 mcg PO DAILY [facility] Last Admin: 05/25/20 10:36 Dose: 25 mcg Documented by: SONU Enoxaparin Sodium (Lovenox) 30 mg SUBCUT Q12H [facility] Magnesium Sulfate (Magnesium Sulfate In Water Premix) 2 gm in 50 mls @ 25 mls/hr IV ONETIME ONE Stop: 05/25/20 13:59 Magnesium Oxide (Magnesium Oxide) 400 mg PO DAILY [facility] Nitrofurantoin Macrocrystals (Macrobid) 100 mg PO BID [facility] Last Admin: 05/25/20 10:39 Dose: 100 mg Documented by: SONU Bisoprolol/Hydrochlorothiazide Pt's Own Med 1 tab PO DAILY [facility] Ibrutinib [Imbruvica ] 420 Mg Pt's Own Med 0 mg PO QPM [facility] Non-Formulary Medication (Ondansetron) 8 mg PO TID PRN PRN Reason: Nausea Celecoxib [Celecoxib ] 200 Mg) Pt's Own Med 0 mg PO DAILY [facility] Omeprazole (Omeprazole) 20 mg PO DAILY [facility] Rosuvastatin Calcium (Crestor) 10 mg PO DAILY [facility] Senna (Senna) 8.6 mg PO DAILY [facility] Last Admin: 05/25/20 10:39 Dose: 8.6 mg Documented by: SONU Assessment/Plan Comment:: * 84-year-old female presenting to the ER with an episode of difficulty speaking which lasted about 30 minutes. * Patient has a history of high cholesterol and hypertension and leukemia. * Vitals in the ED reveal a temp of 36.7 Celsius, pulse 58, respiratory rate 16, blood pressure 122/84, pulse ox 94% on room air. * Chest x-ray in the ED reveal no acute findings. * CT of the head without contrast: 1. Patchy deep white matter low attenuation compatible with this age group suggesting chronic subcortical ischemia. 2. No acute abnormality. * CBC in the ED is unremarkable. Magnesium 1.7, urinalysis remarkable for 2+ blood with 5-10 RBCs, 2+ leukocyte Estrace with 50-75 WBCs, nitrite negative with few bacteria, and 0-5 squamous epithelial cells. * Patient was started on Macrobid PLAN: * There are no rooms available in [place]. Patient will be admitted to the [facility] floor as an observation with telemetry. * MRI of the head, carotid Doppler, and an echocardiogram are all pending. * Lovenox for DVT prophylaxis * Patient is a full code * PT, OT, and speech therapy to evaluate the patient. * Urinalysis is growing out gram-positive cocci. * 2 g of magnesium IV today. * Aspirin 325 mg daily. - Mortality Measure Prognosis:: Good
--- NOTE | 2020-05-25 13:41 | CT ---
PROCEDURE INFORMATION: Exam: CT Head Without Contrast Exam date and time: 05/24/2020 7:03 PM Age: 84 years old Clinical indication: Altered mental status/memory loss; Confusion or disorientation; Patient HX: Transient receptive and expressive aphasia TECHNIQUE: Imaging protocol: Computed tomography of the head without contrast. COMPARISON: No relevant prior studies available. FINDINGS: Brain: Patchy deep white matter low-attenuation zones are seen. There is mild cerebral atrophy. There is no evidence of acute hemorrhage within the brain parenchyma or the subarachnoid space. Cerebral ventricles: The ventricular system demonstrates mild diffuse compensatory enlargement. Bones/joints: There is no evidence of acute fracture. The skull is normal. Paranasal sinuses: The visualized portions of the sinuses are normal. Mastoid air cells: The mastoid sinuses are normal. Orbital cavity: There have been bilateral lens replacements. The visualized portions of the orbits are normal. Vasculature: There are benign senile calcifications of the globi pallidi. There is heavy atherosclerosis of the sigmoid portion of the internal carotid arteries. Soft tissues: The extracranial soft tissues are normal. IMPRESSION: 1. Patchy deep white matter low-attenuation compatible with this age group suggesting chronic subcortical ischemia. 2. No acute abnormality. Thank you for allowing us to participate in the care of your patient. Dictated and Authenticated by: Tadeo Justice MD 05/24/2020 8:33 PM Central Time ([place] & [place]) DANIEL
--- NOTE | 2020-05-25 13:42 | CR ---
PROCEDURE INFORMATION: Exam: XR Chest, 2 Views Exam date and time: 05/24/2020 7:10 PM Age: 84 years old Clinical indication: Other: AMS; Additional info: Expressive aphasia TECHNIQUE: Imaging protocol: XR of the chest Views: 2 views. COMPARISON: CR Chest 2V 06/23/2014 12:21 PM FINDINGS: Lungs: Unremarkable. No consolidation. Pleural space: Unremarkable. No pleural effusion. No pneumothorax. Heart/Mediastinum: Unremarkable. No cardiomegaly. Bones/joints: Unremarkable. IMPRESSION: No acute findings. Thank you for allowing us to participate in the care of your patient. Dictated and Authenticated by: Tadeo Justice MD 05/24/2020 8:31 PM Central Time ([place]) DANIEL
[2020-05-25] MEDS: amLODIPine 5 MG Tab PO SCH (13:53)
[2020-05-25] MEDS: HYDROCHLOROTHIAZIDE PO SCH (13:53)
[2020-05-25] MEDS: BISOPROLOL PO SCH (13:53)
--- NOTE | 2020-05-25 15:31 | MR ---
PROCEDURE INFORMATION: Exam: MR Head Without Contrast Exam date and time: 05/25/2020 1:26 PM Age: 84 years old Clinical indication: Other: TIA vs stroke TECHNIQUE: Imaging protocol: MR of the head without contrast. COMPARISON: CT Head wo Cont 05/24/2020 7:03 PM FINDINGS: Brain: Diffuse volume loss again noted. No acute infarct. No hemorrhage. Moderate chronic white matter disease. No edema. Cerebral ventricles: Normal. No ventriculomegaly. Bones/joints: Unremarkable. Paranasal sinuses: Normal as visualized. No acute sinusitis. Mastoid air cells: Normal as visualized. No mastoid effusion. Orbits: Unremarkable. Soft tissues: Unremarkable. IMPRESSION: No acute findings. Moderate chronic small vessel ischemic changes Thank you for allowing us to participate in the care of your patient. Dictated and Authenticated by: Catalino Dove MD 05/25/2020 3:03 PM Central Time ([place]) DANIEL
[2020-05-25] MEDS ORDERED: IBRUTINIB 420 MG PO SCH (18:00)
[2020-05-25] MEDS: Enoxaparin 30 MG/0.3 ML Syringe SUBCUT SCH (20:20)
[2020-05-26] MEDS ORDERED: Magnesium Oxide 400 MG Tab PO SCH (09:00)
[2020-05-26] MEDS ORDERED: ROSUVASTATIN 10 MG PO SCH (09:00)
[2020-05-26] MEDS ORDERED: OMEPRAZOLE 20 MG PO SCH (09:00)
[2020-05-26] MEDS ORDERED: Celecoxib 100 MG Cap PO SCH ×2 (09:00→10:00)
[2020-05-26] MEDS ORDERED: Furosemide 20 MG Tab PO PRN (09:36)
[2020-05-26] MEDS: Sennosides 8.6 MG Tab PO SCH (10:33)
[2020-05-26] MEDS: Cholecalciferol (Vitamin D3) 25 MCG Tab PO SCH (10:34)
[2020-05-26] MEDS: Nitrofurantoin Monohydrate/Macrocrystalline 100 MG Cap PO SCH (10:34)
[2020-05-26] MEDS: Aspirin 325 MG Tab.EC PO SCH (10:34)
[2020-05-26] MEDS: Enoxaparin 30 MG/0.3 ML Syringe SUBCUT SCH (10:35)
[2020-05-26] MEDS: BISOPROLOL PO SCH (10:36)
[2020-05-26] MEDS: HYDROCHLOROTHIAZIDE PO SCH (10:36)
[2020-05-26] MEDS: amLODIPine 5 MG Tab PO SCH (10:37)
--- NOTE | 2020-05-26 11:04 | US ---
PROCEDURE INFORMATION: Exam: US Duplex Bilateral Extracranial Arteries Exam date and time: 05/26/2020 9:29 AM Age: 84 years old Clinical indication: Other: Questionable TIA TECHNIQUE: Imaging protocol: Real-time Duplex ultrasound scan of the bilateral carotid and vertebral arteries combining quesada scale, color Doppler and spectral waveform analysis. Bilateral exam. COMPARISON: None provided. FINDINGS: There is plaque involving the carotid bifurcations bilaterally. Vertebral artery flow is antegrade bilaterally. The following peak velocities were obtained (Systolic (Diastolic) in cm/sec) Right CCA: 55 Right ICA: Proximal 47 (15), Mid 66 (16), Distal 54 (15) Right ECA: 61 Left CCA: 57 Left ICA: Proximal 47 (15), Mid 64 (20), Distal 29 (8) Left ECA: 62 Peak ICA/CCA ratios: Right: 1.18 Left: 1.12 IMPRESSION: 1. There is plaque with Doppler evidence of less than 50% carotid artery stenosis on the right. This is on the basis of peak internal carotid artery systolic velocity and peak ICA/CCA systolic velocity ratio. 2. There is plaque with Doppler evidence of less than 50% carotid artery stenosis on the left. This is on the basis of peak internal carotid artery systolic velocity and peak ICA/CCA systolic velocity ratio. 3. Antegrade vertebral artery flow bilaterally. REFERENCES: SRU CRITERIA. The degree of internal carotid artery stenosis is based on criteria defined by the Society of Radiologists in Ultrasound (SRU). Normal is no stenosis. Mild is less than 50% stenosis. Moderate is 50-69% stenosis. Severe is greater than 69% stenosis to near occlusion. Near occlusion is a markedly narrowed lumen. Total occlusion is no detectable patent lumen. Thank you for allowing us to participate in the care of your patient. Dictated and Authenticated by: Lior De León MD 05/26/2020 11:49 AM Central Time ([place]) DANIEL
[2020-05-26 12:15] VITALS: BP 151/95; PULSE 64
--- NOTE | 2020-05-26 12:37 | PCM.DCSUM1 ---
Discharge Summary - Hospital Course HPI Initial Comments: Mrs. Dong is a very pleasant 84-year-old woman who now presents to the ED after experiencing difficulty speaking around 17:45 this evening, lasting about 30 minutes. She states that she was able to speak words that were likely Croatian, but they were disordered and did not make any sense. She was unable to communicate with her daughter. Additionally, the patient states that she had difficulty understanding what her daughter was telling her. She states that it felt like she was having difficulty thinking correctly, which has persisted, even though her language has returned. At no time did she have a headache, tingling, numbness, or weakness. No prior similar symptoms. The patient states that she did not take any [id number] or home remedies after the onset of her symptoms, prior to coming to the ED. Here in the ED, the patient's initial BP is found to be modestly elevated at 173/86, otherwise, she is hemodynamically stable, afebrile, saturating 95% on room air. Prior to this evening, the patient denies having a recent fever, chills, sore throat, ear pain, nasal or sinus congestion, cough, dyspnea, chest pain, palpitations, nausea, vomiting, constipation, diarrhea, abdominal pain, urinary symptoms, recent weight gain or weight loss, recent bloody bowel movements or black bowel movements, recent joint aches, headaches, or rashes. The patient's PCP is Dr. Mini Mendoza. Her Oncologist is Dr. Edward Garcia. Diagnosis: Stroke: No - Discharge Data Discharge Date: 05/26/20 (Admit date: 05/24/20) Discharge Disposition: Home, Self-Care 01 Condition: Good - Referral to Home Health Primary Care Physician: Mini Mendoza MD - Discharge Diagnosis/Problem(s) (1) TIA (transient ischemic attack) SNOMED Code(s): 946132822 ICD Code: G45.9 - TRANSIENT CEREBRAL ISCHEMIC ATTACK, UNSPECIFIED Status: Acute Priority: High Current Visit: Yes (2) UTI (urinary tract infection) SNOMED Code(s): 59610590 ICD Code: N39.0 - URINARY TRACT INFECTION, SITE NOT SPECIFIED Status: Acute Priority: High Current Visit: Yes Qualifiers: Urinary tract infection type: site unspecified Hematuria presence: with hematuria Qualified Code(s): N39.0 - Urinary tract infection, site not specified; R31.9 - Hematuria, unspecified - Patient Summary/Data Consults: Consultations 05/25/20 10:13 Consult to Speech Language Pathology [HAND PLATE STACKER Evaluation and Treatment] [CONS] Routine 05/25/20 11:11 OT Evaluation and Treatment [CONS] Routine PT Evaluation and Treatment [CONS] Routine Hospital Course: Assessment/Plan Comment:: * 84-year-old female presenting to the ER with an episode of difficulty speaking which lasted about 30 minutes. * Patient has a history of high cholesterol and hypertension and leukemia. * Vitals in the ED reveal a temp of 36.7 Celsius, pulse 58, respiratory rate 16, blood pressure 122/84, pulse ox 94% on room air. * Chest x-ray in the ED reveal no acute findings. * CT of the head without contrast: 1. Patchy deep white matter low attenuation compatible with this age group suggesting chronic subcortical ischemia. 2. No acute abnormality. * CBC in the ED is unremarkable. Magnesium 1.7, urinalysis remarkable for 2+ blood with 5-10 RBCs, 2+ leukocyte Estrace with 50-75 WBCs, nitrite negative with few bacteria, and 0-5 squamous epithelial cells. * Patient was started on Macrobid PLAN: * There are no rooms available in [facility]. Patient will be admitted to the [facility] floor as an observation with telemetry. * MRI of the head, carotid Doppler, and an echocardiogram are all pending. * Lovenox for DVT prophylaxis * Patient is a full code * PT, OT, and speech therapy to evaluate the patient. * Urinalysis is growing out gram-positive cocci. * 2 g of magnesium IV today. * Aspirin 325 mg daily. 05/26/20 * Echocardiogram taken 05/25/2020: 1. Left ventricular ejection fraction, by visual estimation, is 60 to 65%. 2. Normal left ventricular systolic function. 3. Impaired relaxation grade 1 pattern of left ventricular villar tolic filling. 4. Moderate proximal septal hypertrophy. 5. Normal right ventricular systolic function. 6. Mild mitral annular calcification. 7. Mild to moderate tricuspid valve regurgitation. 8. Moderate dilation of the ascending aorta. 9. The right ventricular systolic pressure is mildly elevated at 41.7 mmHg. 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 11. No regional wall motion abnormalities. * Ultrasound duplex bilateral intracranial arteries from 05/26/2020: 1. There is plaque with Doppler evidence of less than 50% carotid artery stenosis on the right. This is on the basis of peak internal carotid artery systolic velocity and peak ICA/CCA systolic velocity ratio. 2. There is plaque with Doppler evidence of less than 50% carotid artery stenosis on the left. This is on the basis of peak internal carotid arterial systolic velocity and peak ICA/CCA systolic velocity ratio. 3. Antegrade vertebral artery flow bilaterally. * MR head without contrast: No acute findings. Moderate chronic small vessel ischemic changes. * Cognitive eval completed by speech therapist on 05/26/2020: The patient scored a 17 out of 30 on the MOCA suggesting mild to moderate cognitive impairment. She had most difficulty with visual-spatial construction and executive task, and delayed recall. The patient and staff report that she is resolving- showing improvement every day. Should she discharge soon, it may be appropriate that she have 24-hour assistance and be reassessed in a week or 2 to see if she has any residual impairment. * The patient will be discharged to home. She is to follow-up with her primary care provider in 1 week. * Continue taking nitrofurantoin 1 tab twice daily until gone for urinary tract infection. * Resume all other home medications. * Patient does live at home with her daughter. - Patient Instructions Diet: Heart Healthy Diet Activity: As Tolerated Other/Special Instructions: Discharge to home. Follow-up with Dr. Mendoza in 1 week. Continue taking antibiotic for urinary tract infection twice daily until gone. Should your condition worsen or change follow-up with Dr. Mendoza or return to the emergency department. - Discharge Plan *PRESCRIPTION DRUG MONITORING PROGRAM REVIEWED*: Not Applicable *COPY OF PRESCRIPTION DRUG MONITORING REPORT IN PATIENT LONI: Not Applicable Prescriptions/Med Rec: Nitrofurantoin Fergus/Macrocryst [Nitrofurantoin Fergus-MCR] 100 mg PO BID #6 cap Home Medications: Home Meds Cholecalciferol (Vitamin D3) [Vitamin D3] 1,000 unit PO DAILY 06/21/14 [History] Rosuvastatin [Crestor] 10 mg PO DAILY 06/21/14 [History] Bisoprolol/Hydrochlorothiazide [Bisoprolol-Hctz 10-6.25 mg Tab] 1 tab PO DAILY 05/24/20 [History] Celecoxib 200 mg PO DAILY 05/24/20 [History] Gentamicin [Gentak 0.3% Ophth Oint] 1 drop OP TID 05/24/20 [History] Ibrutinib [Imbruvica] 420 mg PO DAILY 05/24/20 [History] Magnesium 250 mg PO DAILY 05/24/20 [History] Omeprazole 20 mg PO DAILY 05/24/20 [History] Ondansetron [Zofran] 8 mg PO TID PRN 05/24/20 [History] Sennosides 8.6 mg PO DAILY 05/24/20 [History] amLODIPine [Norvasc] 5 mg PO DAILY 05/24/20 [History] guaiFENesin [Mucinex] 600 mg PO BID PRN 05/24/20 [History] Aspirin 81 mg PO DAILY 05/25/20 [History] Calcium Carbonate [Calcium] 1,500 mg PO DAILY 05/25/20 [History] Furosemide [Lasix] 20 mg PO DAILY PRN 05/25/20 [History] Multivitamin 1 tab PO DAILY 05/25/20 [History] Nitrofurantoin Fergus/Macrocryst [Nitrofurantoin Fergus-MCR] 100 mg PO BID #6 cap 05/26/20 [Rx] Oxygen Therapy Mode: Room Air Patient Handouts: Sepsis, Diagnosis, Adult, Urinary Tract Infection, Adult, Transient Ischemic Attack Forms: ED Department Discharge Referrals: Mini Mendoza MD [Primary Care Provider] - Edward Garcia MD [Ordering Only Provider] - - Discharge Summary/Plan Comment DC Time >30 min.: No - General Info Date of Service: 05/26/20 Admission Dx/Problem (Free Text: Admission Diagnosis/Problem Admission Diagnosis/Problem TIA, Transient ischemic attack Functional Status: Reports: Pain Controlled, Tolerating Diet, Ambulating, Urinating - Review of Systems General: Reports: No Symptoms HEENT: Reports: No Symptoms Pulmonary: Reports: No Symptoms Cardiovascular: Reports: No Symptoms Gastrointestinal: Reports: No Symptoms Genitourinary: Reports: No Symptoms Musculoskeletal: Reports: No Symptoms Skin: Reports: No Symptoms Neurological: Reports: Confusion Psychiatric: Reports: Confusion - Patient Data Vitals - Most Recent: Last Vital Signs Temp 98.1 F 05/26/20 11:47 Pulse 64 05/26/20 11:47 Resp 18 05/26/20 07:48 BP 151/95 H 05/26/20 11:47 Pulse Ox 94 L 05/26/20 11:47 Weight - Most Recent: 164 lb 9.6 oz I&O - Last 24 hours: Intake & Output 05/25/20 05/26/20 05/26/20 22:59 06:59 14:59 Intake Total 548 400 180 Output Total 400 1175 Balance 148 -775 180 Lab Results - Last 24 hrs: Laboratory Results - last 24 hr 05/26/20 05/26/20 Range/Units 05:47 05:47 WBC 6.14 (3.98-10.04) K/mm3 RBC 4.61 (3.98-5.22) M/mm3 Hgb 13.8 (11.2-15.7) gm/dl Hct 41.7 (34.1-44.9) % MCV 90.5 (79.4-94.8) fl MCH 29.9 (25.6-32.2) pg MCHC 33.1 (32.2-35.5) g/dl RDW Std Deviation 46.0 (36.4-46.3) fL Plt Count 212 (182-369) K/mm3 MPV 9.6 (9.4-12.3) fl Neut % (Auto) 38.5 (34.0-71.1) % Lymph % (Auto) 37.6 (19.3-51.7) % Fergus % (Auto) 19.2 H (4.7-12.5) % Eos % (Auto) 3.3 (0.7-5.8) Baso % (Auto) 1.1 (0.1-1.2) % Neut # (Auto) 2.36 (1.56-6.13) K/mm3 Lymph # (Auto) 2.31 (1.18-3.74) K/mm3 Fergus # (Auto) 1.18 H (0.24-0.36) K/mm3 Eos # (Auto) 0.20 (0.04-0.36) K/mm3 Baso # (Auto) 0.07 (0.01-0.08) K/mm3 Manual Slide Review Abnormal smear Sodium 135 L (136-145) mEq/L Potassium 3.9 (3.5-5.1) mEq/L Chloride 101 (98-107) mEq/L Carbon Dioxide 26 (21-32) mEq/L Anion Gap 11.9 (5-15) BUN 13 (7-18) mg/dL Creatinine 0.8 (0.55-1.02) mg/dL Est Cr Clr Drug Dosing 41.76 mL/min Estimated GFR (MDRD) > 60 (>60) mL/min BUN/Creatinine Ratio 16.3 (14-18) Glucose 85 (83-115) mg/dL Calcium 8.9 (8.5-10.1) mg/dL Magnesium 2.1 (1.8-2.4) mg/dl YASMIN Results - Last 24 hrs: Microbiology 05/24/20 19:45 Urine Culture - Preliminary Urine, Quick Cath (In-Out) Beta Streptococcus Group B Med Orders - Current: Current Medications Amlodipine Besylate (Norvasc) 5 mg PO DAILY [facility] Last Admin: 05/26/20 10:37 Dose: 5 mg Documented by: Aspirin (Ecotrin) 325 mg PO DAILY [facility] Last Admin: 05/26/20 10:34 Dose: 325 mg Documented by: Celecoxib (Celebrex) 200 mg PO DAILY [facility] Last Admin: 05/26/20 10:34 Dose: 200 mg Documented by: Cholecalciferol (Vitamin D3) 25 mcg PO DAILY [facility] Last Admin: 05/26/20 10:34 Dose: 25 mcg Documented by: Enoxaparin Sodium (Lovenox) 30 mg SUBCUT Q12H [facility] Last Admin: 05/26/20 10:35 Dose: 30 mg Documented by: Furosemide (Lasix) 20 mg PO DAILY PRN PRN Reason: Edema Magnesium Oxide (Magnesium Oxide) 400 mg PO DAILY [facility] Last Admin: 05/26/20 10:33 Dose: 400 mg Documented by: Nitrofurantoin Macrocrystals (Macrobid) 100 mg PO BID [facility] Last Admin: 05/26/20 10:34 Dose: 100 mg Documented by: Bisoprolol/Hydrochlorothiazide Pt's Own Med 1 tab PO DAILY [facility] Last Admin: 05/26/20 10:36 Dose: 1 tab Documented by: Ibrutinib [Imbruvica ] 420 Mg Pt's Own Med 0 mg PO QPM [facility] Last Admin: 05/25/20 17:12 Dose: 420 mg Documented by: Omeprazole (Omeprazole) 20 mg PO DAILY [facility] Last Admin: 05/26/20 10:38 Dose: 20 mg Documented by: Ondansetron HCl (Zofran Odt) 8 mg PO TID PRN PRN Reason: Nausea Rosuvastatin Calcium (Crestor) 10 mg PO DAILY [facility] Last Admin: 05/26/20 10:39 Dose: 10 mg Documented by: Senna (Senna) 8.6 mg PO DAILY [facility] Last Admin: 05/26/20 10:33 Dose: 8.6 mg Documented by: Discontinued Medications Celecoxib (Celebrex) 200 mg PO DAILY [facility] Last Admin: 05/26/20 10:49 Dose: Not Given Documented by: Enoxaparin Sodium (Lovenox) 30 mg SUBCUT ONETIME ONE Stop: 05/25/20 10:16 Last Admin: 05/25/20 10:40 Dose: 30 mg Documented by: Magnesium Sulfate (Magnesium Sulfate In Water Premix) 2 gm in 50 mls @ 25 mls/hr IV ONETIME ONE Stop: 05/25/20 13:59 Last Admin: 05/25/20 14:59 Dose: 25 mls/hr Documented by: Nitrofurantoin Macrocrystals (Macrobid) 100 mg PO ONETIME STA Stop: 05/24/20 20:15 Last Admin: 05/24/20 20:34 Dose: 100 mg Documented by: Celecoxib [Celecoxib ] 200 Mg) Pt's Own Med 0 mg PO DAILY [facility] Last Admin: 05/25/20 15:22 Dose: Not Given Documented by: - Exam Quality Assessment: Reports: DVT Prophylaxis (Lovenox). Denies: Supplemental Oxygen General: Reports: Alert, Oriented, Cooperative, No Acute Distress HEENT: Reports: Pupils Equal, Pupils Reactive, Mucous Membr. Moist/[place] Neck: Reports: Supple, Trachea Midline. Denies: Lymphadenopathy Lungs: Reports: Clear to Auscultation, Normal Respiratory Effort Cardiovascular: Reports: Regular Rate, Regular Rhythm, No Murmurs GI/Abdominal Exam: Normal Bowel Sounds, Soft, Non-Tender, No Distention (Female) Exam: Deferred Rectal (Female) Exam: Deferred Back Exam: Reports: Normal Inspection, Full Range of Motion Extremities: Normal Inspection, Normal Range of Motion, Non-Tender, No Pedal Edema, Normal Capillary Refill Skin: Reports: Warm, Dry, Intact Neurological: Reports: No New Focal Deficit Psy/Mental Status: Reports: Alert, Normal Affect, Normal Mood
== END 2020-05-26 14:32 | disposition home or self-care (01) ==
LOC: JD.ED 17:52 → JD.MS 22:42
PROVIDERS: ADMIT Family Medicine; ATTEND Family Medicine
DX: G45.9 Transient cerebral ischemic attack, unspecified (principal); N39.0 Urinary tract infection, site not specified; E78.00 Pure hypercholesterolemia, unspecified; I10 Essential (primary) hypertension; E66.9 Obesity, unspecified; Z79.899 Other long term (current) drug therapy; Z20.828 Contact with and (suspected) exposure to other viral communicable diseases; Z68.29 Body mass index [BMI] 29.0-29.9, adult
CPT/HCPCS: 36415; 70450; 70551; 71046; 80048; 80053; 81001; 82962; 83735; 84484; 85007; 85025; 85027; 85379; 87086; 87088; 87184; 87186; 92523; 93005; 93306; 93880; 97116; 97162; 97165; 97535; 99285; A9270; J1650; J3475; U0002; 93010; 96365; 96366; 96372; 99217; 99220; G0378

== ENCOUNTER 2021-01-06 13:40 | Emergency (ER) | payer MEDICARE, OTHER ==
[2021-01-06] MEDS ORDERED: Sodium Chloride 0.9% 10 ML Syringe FLUSH PRN (13:51)
--- NOTE | 2021-01-06 14:01 | EDM.PDOC ---
ED HPI GENERAL MEDICAL PROBLEM - General Chief Complaint: Neuro Symptoms/Deficits Stated Complaint: STROKE SYMPTOMS/SOB Time Seen by Provider: 01/06/21 13:50 Source of Information: Reports: Patient History Limitations: Reports: No Limitations - History of Present Illness INITIAL COMMENTS - FREE TEXT/NARRATIVE: 85 yo F with hx a fib on apixiban and baby ASA presents with acute onset aphasia around 1pm. Was conversing with granddaughter who noted she was suddenly not making any sense. Granddaughter didn't notice weakness/facial droop or other abnormality. Patient became very anxious so granddaughter gave her 0.5 mg ativan. No change in symptoms. Patient is able to answer some questions with one word answers but otherwise speech is markedly aphasic/word salad/not making se nse. Unable to obtain further hx at this time. - Related Data Allergies Allergy/AdvReac Type Severity Reaction Status Date / Time No Known Allergies Allergy Verified 01/06/21 14:01 Home Meds: Home Meds Rosuvastatin [Crestor] 10 mg PO DAILY 06/21/14 [History] Omeprazole 20 mg PO DAILY 05/24/20 [History] Fluticasone Propionate [Flonase] 2 spray NASBOTH DAILY 10/29/20 [History] Ibrutinib [Imbruvica] 1 tab PO QPM 10/29/20 [History] Apixaban [Eliquis] 5 mg PO BID 01/06/21 [History] Aspirin [Aspirin EC] 81 mg PO DAILY 01/06/21 [History] Bisoprolol/Hydrochlorothiazide [Ziac 10-6.25 MG] 1 tab PO DAILY 01/06/21 [History] Celecoxib [CeleBREX] 200 mg PO DAILY 01/06/21 [History] Fluticasone Propionate [Flonase] 1 spray NASRT DAILY 01/06/21 [History] Furosemide [Lasix] 20 mg PO DAILY 01/06/21 [History] LORazepam [Lorazepam] 0.25 mg PO TID PRN 01/06/21 [History] Metoprolol Tartrate 12.5 mg PO BID 01/06/21 [History] Ondansetron [Zofran] 8 mg PO DAILY PRN 01/06/21 [History] Potassium Chloride [Klor-Con 10] 10 meq PO DAILY 01/06/21 [History] Sennosides [Senokot] 8.6 mg PO DAILY PRN 01/06/21 [History] Sertraline [Zoloft] 25 mg PO DAILY 01/06/21 [History] Tamsulosin [Flomax] 0.4 mg PO DAILY 01/06/21 [History] guaiFENesin [Mucinex] 600 mg PO DAILY PRN 01/06/21 [History] Past Medical History HEENT History: Reports: Hard of Hearing, Other (See Below) Other HEENT History: has hearing aides for bilateral ears and glasses Cardiovascular History: Reports: High Cholesterol, Hypertension Gastrointestinal History: Reports: GERD, Other (See Below) Other Gastrointestinal History: nausea Genitourinary History: Reports: Urinary Incontinence 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: Musculoskeletal History: Reports: Fracture Neurological History: Reports: TIA, Other (See Below) Other Neuro History: patient has some forgetfulness Psychiatric History: Reports: Other (See Below) Other Psychiatric History: patient has some forgetfulness Endocrine/Metabolic History: Reports: Obesity/BMI 30+ Oncologic (Cancer) History: 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, Leukemia - Infectious Disease History Infectious Disease History: Reports: Chicken Pox, Influenza, Measles, Mumps - Past Surgical History HEENT Surgical History: Reports: Cataract Surgery Cardiovascular Surgical History: Reports: None GI Surgical History: Reports: Appendectomy Female Surgical History: Reports: Mastectomy Endocrine Surgical History: Reports: None Neurological Surgical History: Reports: None Musculoskeletal Surgical History: Reports: ORIF, Other (See Below) Other Musculoskeletal Surgeries/Procedures:: broken ankle on left had ORIF Oncologic Surgical History: Reports: Mastectomy, Other (See Below) Other Oncologic Surgeries/Procedures: right masectomy Social & Family History - Family History Family Medical History: No Pertinent Family History - Caffeine Use Caffeine Use: Reports: Coffee - Living Situation & Occupation Living situation: Reports: , with Family (Daughter) Occupation: Retired ED ROS GENERAL - Review of Systems Review Of Systems: Unable To Obtain Reason Not Obtained: aphasia Constitutional: Denies: Fever ED EXAM, GENERAL - Physical Exam Exam: See Below Exam Limited By: No Limitations General Appearance: Alert, WD/WN, Anxious Eye Exam: Bilateral Eye: EOMI, PERRL Ears: Normal External Exam Nose: Normal Inspection Throat/Mouth: Normal Inspection, Normal Oropharynx, Normal Voice, No Airway Compromise Head: Atraumatic, Normocephalic Neck: Normal Inspection, Supple Respiratory/Chest: No Respiratory Distress, Lungs Clear, Normal Breath Sounds, Chest Non-Tender Cardiovascular: Normal Peripheral Pulses, No Edema, Irregularly Irregular GI/Abdominal: Soft, Non-Tender, No Distention Back Exam: Normal Inspection Extremities: Normal Inspection Neurological: Alert, CN II-XII Intact, No Motor/Sensory Deficits, Other (aphasia with word salad/answers questions with one word answers) Psychiatric: Anxious Skin Exam: Warm, Dry, Normal Color, No Rash Course - Vital Signs Last Recorded V/S: Last Vital Signs Temp 36.7 C 01/06/21 16:57 Pulse 71 01/06/21 16:57 Resp 12 01/06/21 16:57 BP 141/87 H 01/06/21 16:57 Pulse Ox 96 01/06/21 16:57 - Orders/Labs/Meds Orders: Active Orders 24 hr Category Date Time Status Brain wo Cont [MR] Stat Exams 01/06/21 14:50 Taken Peripheral IV Insertion Adult [OM.PC] Routine Oth 01/06/21 13:51 Ordered Labs: Laboratory Tests 01/06/21 01/06/21 01/06/21 Range/Units 13:48 14:45 16:30 WBC 6.07 (3.98-10.04) K/mm3 RBC 4.28 (3.98-5.22) M/mm3 Hgb 13.0 D (11.2-15.7) gm/dl Hct 38.5 (34.1-44.9) % MCV 90.0 (79.4-94.8) fl MCH 30.4 (25.6-32.2) pg MCHC 33.8 (32.2-35.5) g/dl RDW Std Deviation 46.1 (36.4-46.3) fL Plt Count 178 L (182-369) K/mm3 MPV 9.5 (9.4-12.3) fl Neut % (Auto) 42.8 (34.0-71.1) % Lymph % (Auto) 40.4 (19.3-51.7) % Simpson % (Auto) 14.8 H (4.7-12.5) % Eos % (Auto) 1.5 (0.7-5.8) Baso % (Auto) 0.5 (0.1-1.2) % Neut # (Auto) 2.60 (1.56-6.13) K/mm3 Lymph # (Auto) 2.45 (1.18-3.74) K/mm3 Simpson # (Auto) 0.90 H (0.24-0.36) K/mm3 Eos # (Auto) 0.09 (0.04-0.36) K/mm3 Baso # (Auto) 0.03 (0.01-0.08) K/mm3 Manual Slide Review Abnormal smear Sodium (136-145) mEq/L Potassium (3.5-5.1) mEq/L Chloride (98-107) mEq/L Carbon Dioxide (21-32) mEq/L Anion Gap (5-15) BUN (7-18) mg/dL Creatinine (0.55-1.02) mg/dL Est Cr Clr Drug Dosing Estimated GFR (MDRD) (>60) mL/min BUN/Creatinine Ratio (14-18) Glucose (70-99) mg/dL POC Glucose 129 H (70-99) mg/dL Calcium (8.5-10.1) mg/dL Magnesium (1.8-2.4) mg/dL Total Bilirubin (0.2-1.0) mg/dL AST (15-37) U/L ALT (14-59) U/L Alkaline Phosphatase (46-116) U/L Troponin I (0.00-0.056) ng/mL Total Protein (6.4-8.2) g/dl Albumin (3.4-5.0) g/dl Globulin gm/dL Albumin/Globulin Ratio (1-2) Urine Color Light yellow (Yellow) Urine Appearance Slt cloudy H (Clear) Urine pH 7.0 (5.0-8.0) Ur Specific [place] 1.015 (1.005-1.030) Urine Protein Negative (Negative) Urine Glucose (UA) Negative (Negative) Urine Ketones Negative (Negative) Urine Occult Blood 2+ H (Negative) Urine Nitrite Positive H (Negative) Urine Bilirubin Negative (Negative) Urine Urobilinogen 0.2 (0.2-1.0) Ur Leukocyte Esterase 2+ H (Negative) U Hyaline Cast (Auto) 0-5 (0-5) /lpf Urine RBC 0-5 (0-5) /hpf Urine WBC 10-20 H (0-5) /hpf Ur Squamous Epith Cells 0-5 (0-5) /hpf Urine Bacteria Many H (FEW) /hpf Urine Mucus Not seen (FEW) /hpf 01/06/21 Range/Units 16:30 WBC (3.98-10.04) K/mm3 RBC (3.98-5.22) M/mm3 Hgb (11.2-15.7) gm/dl Hct (34.1-44.9) % MCV (79.4-94.8) fl MCH (25.6-32.2) pg MCHC (32.2-35.5) g/dl RDW Std Deviation (36.4-46.3) fL Plt Count (182-369) K/mm3 MPV (9.4-12.3) fl Neut % (Auto) (34.0-71.1) % Lymph % (Auto) (19.3-51.7) % Simpson % (Auto) (4.7-12.5) % Eos % (Auto) (0.7-5.8) Baso % (Auto) (0.1-1.2) % Neut # (Auto) (1.56-6.13) K/mm3 Lymph # (Auto) (1.18-3.74) K/mm3 Simpson # (Auto) (0.24-0.36) K/mm3 Eos # (Auto) (0.04-0.36) K/mm3 Baso # (Auto) (0.01-0.08) K/mm3 Manual Slide Review Sodium 129 L (136-145) mEq/L Potassium 4.6 (3.5-5.1) mEq/L Chloride 95 L (98-107) mEq/L Carbon Dioxide 28 (21-32) mEq/L Anion Gap 10.6 (5-15) BUN 12 (7-18) mg/dL Creatinine 0.9 (0.55-1.02) mg/dL Est Cr Clr Drug Dosing TNP Estimated GFR (MDRD) 59 (>60) mL/min BUN/Creatinine Ratio 13.3 L (14-18) Glucose 105 H (70-99) mg/dL POC Glucose (70-99) mg/dL Calcium 8.8 (8.5-10.1) mg/dL Magnesium 2.0 (1.8-2.4) mg/dL Total Bilirubin 0.8 (0.2-1.0) mg/dL AST 18 (15-37) U/L ALT 15 (14-59) U/L Alkaline Phosphatase 65 (46-116) U/L Troponin I < 0.017 (0.00-0.056) ng/mL Total Protein 6.3 L (6.4-8.2) g/dl Albumin 3.7 (3.4-5.0) g/dl Globulin 2.6 gm/dL Albumin/Globulin Ratio 1.4 (1-2) Urine Color (Yellow) Urine Appearance (Clear) Urine pH (5.0-8.0) Ur Specific [place] (1.005-1.030) Urine Protein (Negative) Urine Glucose (UA) (Negative) Urine Ketones (Negative) Urine Occult Blood (Negative) Urine Nitrite (Negative) Urine Bilirubin (Negative) Urine Urobilinogen (0.2-1.0) Ur Leukocyte Esterase (Negative) U Hyaline Cast (Auto) (0-5) /lpf Urine RBC (0-5) /hpf Urine WBC (0-5) /hpf Ur Squamous Epith Cells (0-5) /hpf Urine Bacteria (FEW) /hpf Urine Mucus (FEW) /hpf Meds: Medications Discontinued Medications Generic Name Dose Route Start Last Admin Trade Name Freq PRN Reason Stop Dose Admin Sodium Chloride 10 ml 01/06/21 13:51 01/06/21 13:54 Sodium Chloride 0.9% 10 Ml Syringe FLUSH 10 ml ASDIRECTED PRN Administration Keep Vein Open - Re-Assessments/Exams Free Text/Narrative Re-Assessment/Exam: 01/06/21 15:04 EKG shows a fib with LAFB, rate 72, intervals otherwise normal, ST/T normal/no evidence of acute ischemia. CT head shows no ICH. No LVO on CTA head. Upon reeval, patient markedly improved - speech is clear and fluent. Likely TIA. MRI ordered. 01/06/21 17:51 MRI showed no acute intracranial abnormality. Patient has been at her neurologic baseline since shortly after her ED arrival. C/w TIA. She has already had echo, carotid dopplers in the last year or so. Discussed with Dr. Simeon and the patient's family - offered admission for observation, however, given that TIA workup is complete, patient is already on blood thinners so therefore would not be TPA candidate in case of new CVA, and elderly patient/high risk of delirium, patient, family, Dr. Simeon, and myself all agree that discharge home is a reasonable choice given risks/benefits of admission. Family and patient understand that main risk is catastrophic stroke. Discussed ED return precautions and encouraged RAFIQ PCP f/u. Departure - Departure Time of Disposition: 14:51 Disposition: Home, Self-Care 01 Clinical Impression: Aphasia, TIA (transient ischemic attack) - Discharge Information Instructions: Aphasia Referrals: Mini Mendoza MD [Primary Care Provider] - Forms: ED Department Discharge Additional Instructions: 1. Follow up with your regular doctor as soon as possible for further care 2. Return to the ED as needed for any new concerning symptoms, such as difficulty speaking, weakness, fever, confusion, or any other concerning symptoms Sepsis Event Note (ED) - Focused Exam Vital Signs: Vital Signs Temp Pulse Resp BP Pulse Ox 01/06/21 16:57 36.7 C 71 12 141/87 H 96 01/06/21 14:09 36.4 C 78 18 139/79 93 L - My Orders Last 24 Hours: My Active Orders 01/06/21 13:51 Peripheral IV Insertion Adult [OM.PC] Routine 01/06/21 14:50 Brain wo Cont [MR] Stat - Assessment/Plan Last 24 Hours: My Active Orders 01/06/21 13:51 Peripheral IV Insertion Adult [OM.PC] Routine 01/06/21 14:50 Brain wo Cont [MR] Stat
--- NOTE | 2021-01-06 14:30 | CT ---
Head CT Technique: Multiple axial sections through the brain were obtained. Intravenous contrast was not utilized. Reconstructed coronal and sagittal images were obtained. Comparison: Prior head CT study of 10/29/20. Findings: Ventricles along with basal cisterns and sulci over the convexities are moderately prominent. Diminished density is noted within the periventricular and subcortical white matter which is compatible with small vessel ischemic demyelination change. Atherosclerotic calcification is seen within the vertebral vessels and carotid siphon. Mild basal ganglia calcification is seen which is incidental. No other abnormal parenchymal densities are seen. No evidence of intracranial hemorrhage. No midline shift or mass-effect is seen. Bone window settings were reviewed which show the visualized mastoid and paranasal sinuses to appear clear. No acute calvarial abnormality is appreciated. Impression: 1. Senescent change as described above. 2. Nothing acute is appreciated on nonnoncontrast head CT study. 3. If patient's symptoms are significant, MRI could then be considered. Diagnostic code #2
--- NOTE | 2021-01-06 14:44 | CT ---
CT angiogram of the brain Technique: Multiple axial sections were obtained to the brain. Intravenous contrast was utilized during the arterial phase. Multiple MIP images were also obtained. Comparison: No prior intracranial angiogram is available. Findings: Carotid siphon appears patent. Middle cerebral arteries are patent. Anterior cerebral arteries are patent. Posterior cerebral arteries are also felt to be patent. No focal stenosis or occlusion is seen. Impression: 1. No abnormality is appreciated on CT angiogram of the brain. Diagnostic code #1
--- NOTE | 2021-01-06 14:48 | CT ---
CT angiogram of neck Technique: Multiple axial sections through the neck were obtained. Contrast was utilized in the arterial phase. Reconstructed coronal and sagittal images were obtained. Comparison: No prior CT angiogram of the neck is available. Findings: Right vertebral artery shows what appears to be scattered areas of narrowing. Left vertebral artery also shows scattered areas of narrowing. Both vertebral arteries appear to join to become the basilar artery. Common carotid arteries are patent. Mild calcified plaque is noted around the carotid bulb. Internal carotid arteries are patent. Proximal external carotid arteries are patent. Impression: 1. Scattered areas of narrowing are noted within the vertebral vessels. 2. Mild calcified plaque located around the carotid bulb. 3. No focal stenosis or occlusion is seen within the common carotid, internal carotid or proximal external carotid artery. Diagnostic code #3
[2021-01-06 17:00] VITALS: BP 141/87; PULSE 71
--- NOTE | 2021-01-07 08:20 | MR ---
MRI brain Technique: T1 sagittal; T2, T2 FLAIR, T1 and diffusion axial; T1 and T2 gradient echo coronal images were also obtained. Comparison: Prior head CT study performed earlier on the same day (1:56 PM). Findings: Ventricles along with basal cisterns and sulci over the convexities are prominent. There are multiple areas of increased signal within the periventricular and subcortical white matter which most likely represent small vessel ischemic demyelination change. Additional finding is seen within the right side of the bryan compatible with similar etiology. No other abnormal parenchymal signal is seen. No midline shift or mass-effect is seen. No acute diffusion abnormalities are appreciated. Normal signal void is seen within the major cerebral arteries within the skull base. Impression: 1. Senescent change as noted above. 2. Nothing acute is appreciated on MRI study of the brain. Diagnostic code #2 I agree with preliminary report from [facility], finalized on 01/06/21, 5:02 PM CDT, code 1
== END 2021-01-06 17:00 | disposition home or self-care (01) ==
LOC: JD.ED 13:40
DX: G45.9 Transient cerebral ischemic attack, unspecified (principal); E78.00 Pure hypercholesterolemia, unspecified; I10 Essential (primary) hypertension; K21.9 Gastro-esophageal reflux disease without esophagitis; E66.9 Obesity, unspecified; Z68.30 Body mass index [BMI] 30.0-30.9, adult; Z79.82 Long term (current) use of aspirin; Z79.01 Long term (current) use of anticoagulants; Z79.899 Other long term (current) drug therapy
CPT/HCPCS: 36415; 70450; 70450-26; 70496; 70496-26; 70498; 70498-26; 70551; 70551-26; 80053; 81001; 82947; 83735; 84484; 85025; 93005; 99285-25

== ENCOUNTER 2021-01-14 15:43 | Emergency (ER) | payer MEDICARE, OTHER ==
[2021-01-14 16:07] VITALS: BP 128/98; PULSE 72
--- NOTE | 2021-01-14 16:32 | EDM.PDOC ---
ED HPI GENERAL MEDICAL PROBLEM - General Chief Complaint: Neuro Symptoms/Deficits Stated Complaint: UNABLE TO SPEAK FOR 10 MINUTES Time Seen by Provider: 01/14/21 16:03 Source of Information: Reports: Patient History Limitations: Reports: No Limitations - History of Present Illness INITIAL COMMENTS - FREE TEXT/NARRATIVE: 85-year-old female presents to the ED indicating that she had gotten up from the seated position and perhaps was drifting off a bit when the phone rang. When she got to the phone she found that she could not speak. She was frustrated because her speech was not coming out normally i.e. gibberish and nonsensical. This caused her a great deal of frustration. She states it took about 10 minutes before speech came back and then came back to normal. She was speaking to one of her daughters on the phone of then summoned her other daughter who lives in town to bring her to the ED for further evaluation. She has no trouble walking or having troubles with her balance. Denies any visual acuity changes. Denies any headache. Of note similar event occurred about a week ago ( January 06)with loss of speech transiently. An MRI was done at that time which did not show any abnormalities. She is already on Eliquis 5 mg twice daily for chronic atrial fibrillation and aspirin daily as well as high-dose Crestor and therefore no changes were made to her treatment plan. Onset: Today, Sudden Onset Date: 01/14/21 Onset Time: 15:00 Duration: Minutes: Location: Reports: Other (Lasted about 10 minutes sudden inability to speak with expressive aphasia. Speech was coming out garbled when she tried to answer the phone) Quality: Reports: Other ( and speak to her daughter around 1500 hrs. today. Transient ischemic attack with loss of ability to speak i.e. expressive aphasia) Severity: Moderate Improves with: Reports: Other (Improved spontaneously after about 10 minutes with complete return to normal speech. 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 (see below) - Related Data Allergies Allergy/AdvReac Type Severity Reaction Status Date / Time No Known Allergies Allergy Verified 01/14/21 15:57 Home Meds: Home Meds Rosuvastatin [Crestor] 10 mg PO DAILY 06/21/14 [History] Omeprazole 20 mg PO DAILY 05/24/20 [History] Fluticasone Propionate [Flonase] 2 spray NASBOTH DAILY 10/29/20 [History] Ibrutinib [Imbruvica] 1 tab PO QPM 10/29/20 [History] Apixaban [Eliquis] 5 mg PO BID 01/06/21 [History] Aspirin [Aspirin EC] 81 mg PO DAILY 01/06/21 [History] Bisoprolol/Hydrochlorothiazide [Ziac 10-6.25 MG] 1 tab PO DAILY 01/06/21 [History] Celecoxib [CeleBREX] 200 mg PO DAILY 01/06/21 [History] Furosemide [Lasix] 20 mg PO DAILY 01/06/21 [History] LORazepam [Lorazepam] 0.25 mg PO TID PRN 01/06/21 [History] Metoprolol Tartrate 12.5 mg PO BID 01/06/21 [History] Ondansetron [Zofran] 8 mg PO DAILY PRN 01/06/21 [History] Potassium Chloride [Klor-Con 10] 10 meq PO DAILY 01/06/21 [History] Sennosides [Senokot] 8.6 mg PO DAILY PRN 01/06/21 [History] Sertraline [Zoloft] 25 mg PO DAILY 01/06/21 [History] Tamsulosin [Flomax] 0.4 mg PO DAILY 01/06/21 [History] guaiFENesin [Mucinex] 600 mg PO DAILY PRN 01/06/21 [History] Past Medical History HEENT History: Reports: Cataract, Hard of Hearing, Other (See Below) Other HEENT History: has hearing aides for bilateral ears and glasses Cardiovascular History: Reports: Afib (Chronic atrial fibrillation and is on Eliquis 5 mg twice daily.), High Cholesterol, Hypertension, MA Respiratory History: Reports: None Gastrointestinal History: Reports: GERD, Other (See Below) Other Gastrointestinal History: nausea Genitourinary History: Reports: Urinary Incontinence CAREER SERVICES ASSISTANT History: Reports: Musculoskeletal History: Reports: Fracture Neurological History: Reports: TIA (Suffered her TIA with transient loss of speech January 06 and again today January 13, 2021 loss of speech for 10 minutes with spontaneous return of complete normal speech), Other (See Below) Other Neuro History: patient has some forgetfulness Psychiatric History: Reports: Other (See Below) Other Psychiatric History: patient has some forgetfulness Endocrine/Metabolic History: Reports: Obesity/BMI 30+ Hematologic History: Reports: None Immunologic History: Reports: None Oncologic (Cancer) History: 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, Leukemia Dermatologic History: Reports: None - Infectious Disease History Infectious Disease History: Reports: Chicken Pox, Influenza, Measles, Mumps - Past Surgical History Head Surgeries/Procedures: Reports: None HEENT Surgical History: Reports: Cataract Surgery Cardiovascular Surgical History: Reports: None Respiratory Surgical History: Reports: None GI Surgical History: Reports: Appendectomy Female Surgical History: Reports: Mastectomy Endocrine Surgical History: Reports: None Neurological Surgical History: Reports: None Musculoskeletal Surgical History: Reports: ORIF, Other (See Below) Other Musculoskeletal Surgeries/Procedures:: broken ankle on left had ORIF Oncologic Surgical History: Reports: Mastectomy, Other (See Below) Other Oncologic Surgeries/Procedures: right masectomy Social & Family History - Family History Family Medical History: No Pertinent Family History - Tobacco Use Tobacco Use Status *Q: Never Tobacco User - Caffeine Use Caffeine Use: Reports: Coffee, Tea - Recreational Drug Use Recreational Drug Use: No - Living Situation & Occupation Living situation: Reports: , with Family (Daughter) Occupation: Retired ED ROS GENERAL - Review of Systems Review Of Systems: See Below Constitutional: Reports: Fatigue. Denies: Fever, Chills, Decreased Appetite, Weight Loss HEENT: Reports: Glasses, Other (Previous cataract extraction and intraocular lens implants.) Respiratory: Reports: Shortness of Breath. Denies: Wheezing, Pleuritic Chest Pain, Cough, Sputum, Hemoptysis Cardiovascular: Reports: Blood Pressure Problem, Dyspnea on Exertion, Palpitations (Sometimes sometimes or palpitations due to chronic atrial fib.). Denies: Chest Pain, Claudication, Edema, Lightheadedness, Orthopnea (Chronic hypertension) Endocrine: Reports: Fatigue GI/Abdominal: Reports: Constipation. Denies: Nausea, Vomiting : Reports: Frequency, Incontinence (Occasional incontinence urge and stress components.) Musculoskeletal: Reports: Neck Pain, Shoulder Pain, Back Pain, Joint Pain Skin: Reports: Bruising (Bruises easily as she is on aspirin and Eliquis) Neurological: Reports: Trouble Speaking (Is a loss of speech for about 10 minutes today starting about 1500 hrs. when she went to answer the phone and speech did not come out right eye was garbled and nonsensical and then spontaneous return to normal speech 10 minutes later. Similar type event occurred on January 06 with normal MRI.). Denies: Confusion, Dizziness, Headache, Numbness, Syncope, Tingling, Difficulty Walking, Weakness Psychiatric: Reports: No Symptoms Hematologic/Lymphatic: Reports: No Symptoms Immunologic: Reports: No Symptoms ED EXAM, NEURO - Physical Exam Exam: See Below Exam Limited By: No Limitations General Appearance: Alert, WD/WN, No Apparent Distress, Other (Speech is normal at this time. Temperature is 36.1 with a heart rate of 72 and atrial fibrillation on the monitor. Respiratory is 18 with O2 sats of 94 to 96% room air. BP 128/98.) Eye Exam: Bilateral Eye: Normal Inspection (No scleral icterus or blepharal pallor. Previous cataract extractions and intraocular lens implants), PERRL (No gaze palsy) Throat/Mouth: Normal Inspection, Normal Lips, Normal Oropharynx, Other (Uvula is in the midline.) Head Exam: Atraumatic, Normocephalic, Other (No signs of head or facial trauma .). No: Facial Swelling, Facial Tenderness Neck: Limited Range of Motion ([place] on lateral rotation with loss of 10 degrees flexion and lateral flexion.). No: Full Range of Motion ( Also loss of 10 degrees extension.), Carotid Bruit, Lymphadenopathy (L), Lymphadenopathy (R) Respiratory/Chest: No Respiratory Distress, Lungs Clear, Normal Breath Sounds, No Accessory Muscle Use, Decreased Breath Sounds. No: Rales, Rhonchi (Sounds are diminished to the lower 20% lung aceves bilaterally.) Cardiovascular: Normal Peripheral Pulses, Regular Rate, Rhythm, No Edema, No Murmur, No Rub GI/Abdominal: Normal Bowel Sounds, Soft, Non-Tender, No Organomegaly, No Mass, Pelvis Stable Neurological: Alert, Normal Mood/Affect, Normal Dorsiflexion (Mildly anxious.), CN II-XII Intact, Normal Plantar Flexion, Normal Gait (According to the daughter she could walk without assistance.), No Motor/Sensory Deficits (No motor deficit.), Oriented x 3. No: Normal Reflexes DTR: 0: Achilles (R), Achilles (L), 1+: Bicep (R), Bicep (L), Patella (R), Patella (L) Back Exam: Other (Mild kyphosis thoracic spine) Extremities: Normal Inspection, Normal Range of Motion, Non-Tender, No Pedal Edema, Other (Evidence of osteoarthritic changes both knees both hips) Psychiatric: Anxious (Mildly anxious) Skin Exam: Warm, Dry, Intact, Normal Color, No Rash #1 Interpretation EKG Date: 01/14/21 Time: 16:19 Rhythm: A-Fib (With a rate of 48 to 90 bpm) Rate (Beats/Min): 62 [place]: LAD-Left [place] Deviation (-53 degrees) P-Wave: Variable QRS: Other (Q waves V1 and V2 consider old anteroseptal myocardial infarction with delayed R wave transition) EKG Interpretation Comments: Abnormal ECG Course - Vital Signs Last Recorded V/S: Last Vital Signs Temp 36.1 C 01/14/21 16:05 Pulse 72 01/14/21 16:05 Resp 18 01/14/21 16:05 BP 128/98 H 01/14/21 16:05 Pulse Ox 94 L 01/14/21 16:05 - Orders/Labs/Meds Orders: Active Orders 24 hr Category Date Time Status EKG Documentation Completion [RC] STAT Care 01/14/21 16:17 Active Head wo Cont [CT] Stat Exams 01/14/21 16:17 Taken - Radiology Interpretation Free Text/Narrative:: 85-year-old female presents to the ED with acute onset of inability to speak i.e. garbled speech nonsensical speech that lasted about 10 minutes. This occurred when she got up to answer the phone to speak with her daughter around 1500 hrs. today. Speech would not come out right. In about 10 minutes her speech returned to complete normal vocabulary. She had a similar event on January 06 and had MRI of her brain done at that time with no positive findings. Of not e the patient is chronic atrial fibrillation with rate controlled in the 70s today. She is on Eliquis 5 mg twice daily for this. She is also on aspirin daily as an antiplatelet medication. Neuro exam at this time is completely normal. Plan CT head to be done. ECG as well. - Re-Assessments/Exams Free Text/Narrative Re-Assessment/Exam: 01/14/21 16:57 ECG reveals atrial fibrillation with controlled rate of 48 to 90/min. 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 CT of the head is unchanged from last week in terms of no intracranial mass-effect or bleeding. There is prominence of the sulci and convexities compared with the patient's age. Diffuse small vessel ischemic change appreciated from demyelination in both basal ganglia. There is mild calcification in both basal ganglia as well. There is mild diffuse cerebellar atrophy. There is moderate age-related parenchymal volume loss. Sinuses are clear. There is athero sclerotic calcification is demonstrated in the intracranial carotid arteries bilaterally as well as within the vertebrobasilar system. The literature is unclear that there is any benefit of Plavix over aspirin as an antiplatelet inhibitor and therefore treatment will not be changed. She is currently on Eliquis 5 mg twice daily and aspirin daily. I suspect there is plaque breaking off from the arch of the aorta causing recurrent TIAs. She is also on Crestor 10 mg daily and is unlikely to benefit from a higher dose. Patient and her daughter were appraised of the findings and treatment plan today. Departure - Departure Time of Disposition: 16:59 Disposition: Home, Self-Care 01 Condition: Fair Clinical Impression: Transient ischemic attack (TIA) Afib Qualifiers: Atrial fibrillation type: unspecified Qualified Code(s): I48.91 - Unspecified atrial fibrillation - Discharge Information *PRESCRIPTION DRUG MONITORING PROGRAM REVIEWED*: Not Applicable *COPY OF PRESCRIPTION DRUG MONITORING REPORT IN PATIENT LONI: Not Applicable Instructions: Transient Ischemic Attack, [id number] Referrals: Mini Mendoza MD [Primary Care Provider] - Forms: ED Department Discharge Additional Instructions: Evaluation in the emergency room today in regards to an recurrent transient ischemic attack in which he lost ability to speak for about 10 minutes. We call this expressive aphasia. The cause is likely due to plaque break off from one of the major arteries such as the arch of the aorta or the internal aspect of the carotid artery which still delivers blood supply to the left side of your brain. CT scan done today reveals no signs of bleeding or infarct from last weeks similar event. You are on maximum treatment for stroke at this time. Eliquis 5 mg twice daily is for atrial fibrillation to prevent clot formation in the heart that then can be thrown out of the heart and cause a stroke. Crestor is used to try and prevent further hardening of the arteries or atherosclerosis from developing. Aspirin daily bind onto platelets as they are made and prevents them from sticking together to form a blood clot. At this time there is no other medications that are available to prevent TIA or stroke. At this time continue all current medications as prescribed. Sepsis Event Note (ED) - Evaluation Sepsis Screening Result: No Definite Risk - Focused Exam Vital Signs: Vital Signs Temp Pulse Resp BP Pulse Ox 01/14/21 16:05 36.1 C 72 18 128/98 H 94 L - My Orders Last 24 Hours: My Active Orders 01/14/21 16:17 EKG Documentation Completion [RC] STAT Head wo Cont [CT] Stat - Assessment/Plan Last 24 Hours: My Active Orders 01/14/21 16:17 EKG Documentation Completion [RC] STAT Head wo Cont [CT] Stat
--- NOTE | 2021-01-14 18:58 | CT ---
Head CT Technique: Multiple axial sections through the brain were obtained. Intravenous contrast was not utilized. Reconstructed coronal and sagittal images were obtained. Comparison: Prior brain MRI of 01/06/[address] study of 01/06/21. Findings: Ventricles along with basal cisterns and sulci over the convexities are moderately prominent. Atrophy is also noted within the cerebellum. Diffuse diminished density is noted within the periventricular and subcortical white matter which is similar to prior exams compatible with small vessel ischemic demyelination change. Similar finding is seen within the basal ganglia. No other abnormal parenchymal densities are seen. No evidence of intracranial hemorrhage is seen. No midline shift or mass-effect is seen. Bone window settings were reviewed which show atherosclerotic calcification within the carotid siphon and vertebral vessels. Visualized mastoid sinuses and paranasal sinuses are clear. No acute calvarial abnormality is appreciated. Impression: 1. Senescent change as noted above. 2. No definite acute intracranial abnormality is identified. Diagnostic code #2 I agree with preliminary report from [facility], finalized on 01/14/21, 6:10 PM CDT, code 1
== END 2021-01-14 17:25 | disposition home or self-care (01) ==
LOC: JD.ED 15:43
DX: G45.9 Transient cerebral ischemic attack, unspecified (principal); I48.91 Unspecified atrial fibrillation; R94.31 Abnormal electrocardiogram [ECG] [EKG]; E78.00 Pure hypercholesterolemia, unspecified; I10 Essential (primary) hypertension; I25.2 Old myocardial infarction; K21.9 Gastro-esophageal reflux disease without esophagitis; E66.9 Obesity, unspecified; Z68.30 Body mass index [BMI] 30.0-30.9, adult; Z79.82 Long term (current) use of aspirin; Z79.01 Long term (current) use of anticoagulants; Z79.899 Other long term (current) drug therapy
CPT/HCPCS: 70450; 70450-26; 93005; 93010; 99284; 99285-25

== ENCOUNTER 2022-04-24 08:23 | Observation (INO) | payer MEDICARE, OTHER ==
[2022-04-24] MEDS ORDERED: Sodium Chloride 0.9% 10 ML Syringe FLUSH PRN (08:30)
[2022-04-24] MEDS ORDERED: Labetalol 100 MG/20 ML MDV ONE (08:42)
[2022-04-24] MEDS ORDERED: Ondansetron 4 MG/2 ML SDV ONE (08:42)
[2022-04-24] MEDS ORDERED: Ondansetron 4 MG/2 ML SDV IVPUSH ONE (08:43)
[2022-04-24] MEDS ORDERED: Labetalol 100 MG/20 ML MDV IVPUSH ONE (08:43)
[2022-04-24] MEDS ORDERED: Factor IX Complex Human 500 UNIT VIAL IV ONE (08:48)
[2022-04-24] MEDS ORDERED: Desmopressin 40 MCG/10 ML ML SUBCUT ONE (08:48)
[2022-04-24] MEDS ORDERED: niCARdipine HCl 25 MG in Sodium Chloride 0.9% 250 ML IV SCH (09:00)
[2022-04-24 09:09] LABS: ESTIMATED GFR 71 mL/min (>60)
[2022-04-24] MEDS ORDERED: Desmopressin 4 MCG/1 ML Amp IV ONE (09:25)
[2022-04-24] MEDS ORDERED: Morphine 2 MG/ML SYRINGE IVPUSH ONE (09:35)
[2022-04-24] MEDS ORDERED: Morphine 2 MG/ML SYRINGE IV ONE ×2 (09:41→13:00)
[2022-04-24 09:58] VITALS: PULSE 104
[2022-04-24] MEDS ORDERED: Morphine 2 MG/ML SYRINGE ONE (12:58)
[2022-04-24] MEDS ORDERED: LORazepam 2 MG/ML SDV ONE (12:59)
[2022-04-24] MEDS ORDERED: Scopolamine 1.5 MG Transdermal Patch ONE (12:59)
[2022-04-24] MEDS ORDERED: Scopolamine 1.5 MG Transdermal Patch TOP ONE (13:00)
[2022-04-24] MEDS ORDERED: LORazepam 2 MG/ML SDV IV ONE (13:00)
[2022-04-25] MEDS ORDERED: Morphine 2 MG/ML SYRINGE IV ONE (04:20)
[2022-04-25] MEDS ORDERED: LORazepam 2 MG/ML SDV IV ONE (06:20)
== END 2022-04-25 07:23 | disposition expired ==
LOC: JD.ED 08:23 → JD.ZCENSUS 11:07 → JD.ED 12:10
PROVIDERS: ADMIT Internal Medicine; ATTEND Internal Medicine
DX: I46.9 Cardiac arrest, cause unspecified (principal); I61.8 Other nontraumatic intracerebral hemorrhage; I48.91 Unspecified atrial fibrillation; E78.5 Hyperlipidemia, unspecified; I10 Essential (primary) hypertension; I25.2 Old myocardial infarction; K21.9 Gastro-esophageal reflux disease without esophagitis; E66.9 Obesity, unspecified; Z68.24 Body mass index [BMI] 24.0-24.9, adult; Z98.890 Other specified postprocedural states; Z79.82 Long term (current) use of aspirin; Z79.899 Other long term (current) drug therapy; Z86.73 Personal history of transient ischemic attack (TIA), and cerebral infarction without residual deficits; Z79.01 Long term (current) use of anticoagulants
CPT/HCPCS: 36415; 70450; 71045; 80053; 85025; 85610; 93005; 96374; 96375; 96376; 99285; A9270; G0378; J2060; J2270; J2405; J2597; J3490; 93010; 99217; 99220